=== PATIENT | male | born 1960 | race Caucasian/White ===

== ENCOUNTER 2022-01-21 18:36 | Observation (INO) ==
[2022-01-21] MEDS ORDERED: LORazepam 2 MG/1 ML VIAL IV STA (18:43)
[2022-01-21] MEDS ORDERED: ONDANSETRON INJ 2 MG/ML 2 ML VIAL IV STA (18:43)
[2022-01-21] MEDS ORDERED: SODIUM CHLORIDE 0.9% 1000ML 1,000 ML IV ONE ×2 (18:43→19:48)
--- NOTE | 2022-01-21 18:48 | Emergency Department Note ---
Impression & Plan Syncope and collapse, Elevated d-dimer, Vomiting ED Provider Note Name: BART PRINCE Age: 61 Sex: M Arrives Via: Ambulance Informant: Patient, ED Provider: Lorenzo Fernandez MD Chief Complaint: Passed out Impression: As per impressions above Medical Decision Makin-year-old gentleman arrives for evaluation of syncope followed by severe nausea, diaphoresis and illness. Patient with a history of hypothyroidism, dyslipidemia, hypertension, type 2 diabetes and was started on Ozempic today. At dinner he had a syncopal event and it went to he was severely diaphoretic and agitated. He arrives severely nauseous and diffuse generalized weakness, epigastric abdominal pain and some shortness of breath. By exam he is diaphoretic and quite ill-appearing. EKG initially without any clear evidence of ischemia. He was given Zofran and Ativan and fluids IV with vast improvement in symptoms however did have some hypoxia requiring nasal cannula O2. CT of the head was obtained which is negative for acute findings. Laboratory work-up reveals an elevated D-dimer and given the syncope, mild hypoxia and but it is clear that CT of the chest was necessary but with the abdominal discomfort getting the abdomen was indicated as well. I reviewed his chart and he does not you routinely have acute renal insufficiency as his previous up creatinine was 1.1 as an outpatient a little over a week ago. Thus further fluids given and CT was obtained with IV contrast. Fortunately CT of the chest abdomen/pelvis reveals no acute findings. Repeat EKG continues to show no evidence of ACS and he has had no further chest pain. On repeat evaluations patient is improving significantly. He has no acute neurologic deficits to suspect acute stroke. He is not persistently vertiginous thus I think this is unlikely a posterior process and given his already received dye load for CTs of the chest and pelvis I would prefer to avoid further IV dye especially given his renal insufficiency. Given all these findings clearly will need to come in for further evaluation hospitalist was consulted patient stable at time. Prior Medical Record and Triage/Nursing Notes reviewed by Me Additional history obtained from chart Differentials:Vasovagal event, dehydration, infection, hypoglycemia, electrolyte abnormalities, cardiac sources, intracerebral event, pulmonary embolism, seizure, toxicologic, neurologic, as well as other pathologies. Vital Signs: reviewed and remarkable for no significant abnormalities Interventions: nss bolus, ativan 1mg iv, zofran 4mg iv Labs:Reviewed and remarkable for elevated creatinine, low bicarb Imaging:X ray results are stated below per my interpretation: Chest: 1 view: No infiltrate, no effusion, normal cardiac border. Radiologist interpretation reviewed by me: CT head wo con, ct c/a/p angio no acute findings EKG:Per My Interpretation: Indication Syncope: NSR with 1st AV block 89 bpm, qtc 515. No Ectopy. No Ischemia. No previous for comparison Cardiac/Tele Monitoring: Cardiac Monitoring: An Order was placed for continuous cardiac monitoring. The monitor shows a rate of 80 with a normal sinus rhythm. Consults:Dr Chino oBwles Hospitalist Plan: Disposition:Hospitalization. Condition: Good History of Present Illness:61-year-old male arrives for evaluation of syncope. Patient was eating dinner with his and 2 friends at the [facility]. He became diaphoretic any weakness and then had a syncopal event. His eyes rolled in the back of his head and he laid back against the chair he was sitting in. He did not fall or hit his head. This was followed by a brief episode of shaking. It took him some time to come to and then he vomited multiple times. He notes he feels severely nauseous right now. He denies any current headache but states his entire body feels weak. He denies any focal neurologic deficits or slurred speech. He denies any chest pain or shortness of breath. He notes no abdominal pain. Has had no recent urinary, bowel symptoms, fevers, chills, chest pain, shortness of breath, back pain, leg swelling, calf pain, rashes, ble eding/bruising or other concerning signs or symptoms. He had no falls or trauma or other injuries. EMS notes patient with blood pressure in the 90s and blood sugars in the 120s. Patient states that he is feeling better now that he has vomited several times. Patient does note that he started Ozempic today for his type 2 diabetes. ROS: See above HPI for pertinent positives & negatives. A total of 10 systems reviewed and were otherwise negative. Past Medical History:Hypothyroid, hypertension, type 2 diabetes, SARA, dyslipidemia, GERD Past Surgical History:See Below Family History:See Below Social History:See Below Home Medications:See Below Allergies:statins Vitals:Blood Pressure: 149/80, Pulse 64, RR 17, T 36.5C, O2 96% on RA Physical Exam: GENERAL: Patient is diaphoretic and uncomfortable appearing and in moderate distress. Dry heaving. EYES: No scleral icterus, unremarkable pupils. ENT: Mucous membranes moist, no nasal congestion. NECK: No masses appreciated, nomeningismus, trachea is midline. RESPIRATORY: No dyspnea. Clear to auscultation and equal bilaterally. No wheeze, no rhonchi. CARDIOVASCULAR: Regular rate and rhythm.No murmurs, rubs, gallops appreciated. GASTROINTESTINAL: Abdomen soft, non-tender, no peritonitis.Bowel sounds positive.No masses appreciated. BACK: No midline tenderness, no CVA tenderness EXTREMITIES: Normal motion all extremities, no cyanosis, no edema. NEUROLOGIC: Alert and oriented, no acute motor or sensory deficits, no focal weakness, cranial nerves grossly intact. SKIN: No rash, no jaundice, no diaphoresis. PSYCH: Severely anxious appearing GCS: 15 ED Course: Times/Reassessments: Vastly improved with medications though requiring some nasal cannula O2 which was eventually weaned off without difficulty. Lorenzo Fernandez MD Past Med/Surg History Medical History Anxiety Carpal tunnel syndrome Complex sleep apnea syndrome Dyslipidemia Esophageal reflux Hypertension Hypothyroidism Polymyalgia rheumatica Type 2 diabetes mellitus Surgical History Previous back surgery Family History Other Coronary heart disease Hypertension Lung cancer Social History Smoking Status: Current some day smoker Hx Alcohol Use: Yes Alcohol type: beer, wine and hard liquor Hx Substance Use: No Preferred Language: Mozamb[place] marital status: Current Living Situation: Spouse current occupational status: employed Feels Safe at Home: Yes Assistive Devices: BiPap Allergies Allergies Allergy/AdvReac Type Severity Reaction Status Date / Time Veyeqgz-PVR-IeU Reductase Allergy Verified 01/21/22 22:09 Inhibitor [Zdhdaiz-Qbp-Lsj Reductase Inhibitor] semaglutide [From Ozempic] AdvReac Intermediate arf, loose Verified 01/21/22 22:37 stools Home Meds Home Medications Medication Instructions Recorded Confirmed losartan 100 mg tablet 100 mg PO DAILY tab 02/28/19 01/21/22 omeprazole 20 mg capsule,delayed 20 mg PO DAILY cap 02/28/19 01/21/22 release albuterol sulfate 90 mcg/actuation 2 inh INHALATION Q4H PRN 11/18/20 01/21/22 aerosol inhaler amlodipine 5 mg tablet 5 mg PO QAM 11/18/20 01/21/22 betamethasone, augmented 0.05 % 1 applic TOPICAL BID PRN 11/18/20 01/21/22 topical cream fluticasone furoate 100 1 inh INHALATION DAILY PRN 11/18/20 01/21/22 mcg/actuation blister powder for inhalation (Arnuity Ellipta) levothyroxine 175 mcg tablet 175 mcg PO DAILYBB 11/18/20 01/21/22 celecoxib 200 mg capsule 200 mg PO QAM 01/21/22 01/21/22 cholecalciferol (vitamin D3) 125 125 mcg PO DAILY 01/21/22 01/21/22 mcg (5,000 unit) tablet cyanocobalamin (vitamin B-12) 1,000 mcg PO DAILY 01/21/22 01/21/22 1,000 mcg tablet fluticasone furoate 200 1 inh INHALATION DAILY PRN 01/21/22 01/21/22 mcg-vilanterol 25 mcg/dose inhalation powder (Breo Ellipta) rosuvastatin 20 mg tablet 20 mg PO DAILY 01/21/22 01/21/22 scopolamine base 1 mg over 3 days 1 patch TRANSDERMAL .Q3D PRN 01/21/22 01/21/22 transdermal patch semaglutide (Ozempic) 0.25 mg SUBCUT WK 01/21/22 01/21/22 tamsulosin 0.4 mg capsule 0.4 mg PO QAM 01/21/22 01/21/22 vilazodone 20 mg tablet (Viibryd) 20 mg PO QAM 01/21/22 01/21/22 Results & Data (ED) Vital Signs Vital Signs - 24 hr 01/21/22 18:44 01/21/22 18:45 01/21/22 19:00 Pulse Rate 88 73 Pulse Rate from SpO2 Sensor 89 73 Respiratory Rate 39 H 13 Blood Pressure 117/70 Blood Pressure Mean 85 Pulse Oximetry 98 96 Sepsis New/Unexplained Change in Mental Status Sepsis Action Taken by Nursing 01/21/22 19:13 01/21/22 19:15 01/21/22 19:42 Pulse Rate 79 79 84 Pulse Rate from SpO2 Sensor 80 80 Respiratory Rate 25 H 11 L 11 L Blood Pressure 111/66 121/64 Blood Pressure Mean 81 83 Pulse Oximetry 93 77 L Sepsis New/Unexplained Change in Mental Status Sepsis Action Taken by Nursing 01/21/22 19:45 01/21/22 19:46 01/21/22 19:53 Pulse Rate 90 89 Pulse Rate from SpO2 Sensor 90 89 Respiratory Rate 18 16 Blood Pressure 133/72 118/74 Blood Pressure Mean 92 88 Pulse Oximetry 99 98 Sepsis New/Unexplained Change in Mental Status Yes Sepsis Action Taken by Nursing No Action Required 01/21/22 20:11 01/21/22 20:13 01/21/22 20:15 Pulse Rate 87 89 Pulse Rate from SpO2 Sensor 87 87 89 Respiratory Rate 16 15 Blood Pressure 125/79 120/73 Blood Pressure Mean 94 88 Pulse Oximetry 100 96 94 Sepsis New/Unexplained Change in Mental Status Sepsis Action Taken by Nursing 01/21/22 20:30 01/21/22 20:45 01/21/22 21:00 Pulse Rate 85 Pulse Rate from SpO2 Sensor 85 85 82 Respiratory Rate 18 Blood Pressure 118/70 122/76 126/74 Blood Pressure Mean 86 91 91 Pulse Oximetry 92 89 L 92 Sepsis New/Unexplained Change in Mental Status Sepsis Action Taken by Nursing 01/21/22 21:15 01/21/22 21:30 01/21/22 21:45 Pulse Rate Pulse Rate from SpO2 Sensor 80 88 72 Respiratory Rate Blood Pressure 116/73 140/92 130/76 Blood Pressure Mean 87 108 94 Pulse Oximetry 90 92 93 Sepsis New/Unexplained Change in Mental Status Sepsis Action Taken by Nursing 01/21/22 22:00 01/21/22 22:15 Pulse Rate Pulse Rate from SpO2 Sensor 77 72 Respiratory Rate Blood Pressure 129/84 126/85 Blood Pressure Mean 99 98 Pulse Oximetry 94 92 Sepsis New/Unexplained Change in Mental Status Sepsis Action Taken by Nursing Laboratory Data Result diagrams: 01/21/22 18:55 01/21/22 18:55 Lab Results 01/21/22 01/21/22 01/21/22 Range/Units 18:55 18:55 18:55 WBC 12.12 H (4.8-10.8) K/uL RBC 5.12 (4.7-6.1) M/uL Hgb 15.0 (14.0-18.0) g/dL Hct 43.5 (42-52) % MCV 85.0 (80-100) fL MCH 29.3 (25-34) pg MCHC 34.5 (32-36) g/dL RDW Std Deviation 40.6 (36.4-46.3) fL RDW Coeff of Moises 13.1 (11.5-14.5) % Plt Count 231 (130-400) K/uL MPV 11.2 H (7.4-10.4) fL Immature Gran % (Auto) 0.2 % Neut % (Auto) 60.4 % Lymph % (Auto) 27.0 % Smith % (Auto) 11.9 % Eos % (Auto) 0.5 % Baso % (Auto) 0.0 % Neut # (Auto) 7.32 H (1.4-6.5) K/uL Lymph # (Auto) 3.27 (1.2-3.4) K/uL Smith # (Auto) 1.44 H (0.11-0.59) K/uL Eos # (Auto) 0.06 (0-0.5) K/uL Baso # (Auto) 0.00 (0-0.2) K/uL Immature Gran # (Auto) 0.03 H (0.00-0.02) K/uL D-Dimer 750 H* (0-500) ug/L FEU Sodium 137 (136-145) mmol/L Potassium 3.1 L (3.5-5.1) mmol/L Chloride 102 (98-107) mmol/L Carbon Dioxide 16 L (21-32) mmol/L Anion Gap 19 H (3-11) BUN 35 H (6-23) mg/dl Creatinine 1.76 H (0.6-1.4) mg/dl Est Cr Clr Drug Dosing Not Reportable Est GFR ( Amer) 47.0 ml/min Est GFR (Non-Af Amer) 40.5 ml/min BUN/Creatinine Ratio 19.9 (10-20) Glucose 180 H (70-99(Fasting)) mg/dl Calcium 10.2 H (8.5-10.1) mg/dl Magnesium 2.2 (1.7-2.4) mg/dl Total Bilirubin 1.7 H (0.2-1.0) mg/dl Direct Bilirubin 0.2 (0-0.2) mg/dl AST 28 (13-39) U/L ALT 29 (7-52) U/L Alkaline Phosphatase 62 (34-104) U/L Total Creatine Kinase (30-223) U/L Troponin I High Sens 4.4 (0-20) pg/ml Total Protein 7.3 (6.0-8.3) gm/dl Albumin 4.5 (3.4-5.0) gm/dl Lipase 60 (11-82) U/L Procalcitonin (0-0.5) ng/ml Urine Color Urine Appearance (Clear) Urine pH (4.5-7.5) Ur Specific [place] (1.000-1.030) Urine Protein (Negative) Urine Glucose (UA) (Negative) Urine Ketones (Negative) Urine Blood (Negative) Urine Nitrite (Negative) Urine Bilirubin (Negative) Urine Urobilinogen (Negative) Ur Leukocyte Esterase (Negative) Urine WBC (Auto) (0-5) /hpf Urine RBC (Auto) (0-4) /hpf U Hyaline Cast (Auto) (0-5) /lpf U Epithel Cells (Auto) (0-5) /lpf Urine Bacteria (Auto) (Negative) SARS-CoV-2, RNA, NAAT (NEGATIVE) 01/21/22 01/21/22 01/21/22 Range/Units 18:55 18:55 19:50 WBC (4.8-10.8) K/uL RBC (4.7-6.1) M/uL Hgb (14.0-18.0) g/dL Hct (42-52) % MCV (80-100) fL MCH (25-34) pg MCHC (32-36) g/dL RDW Std Deviation (36.4-46.3) fL RDW Coeff of Moises (11.5-14.5) % Plt Count (130-400) K/uL MPV (7.4-10.4) fL Immature Gran % (Auto) % Neut % (Auto) % Lymph % (Auto) % Smith % (Auto) % Eos % (Auto) % Baso % (Auto) % Neut # (Auto) (1.4-6.5) K/uL Lymph # (Auto) (1.2-3.4) K/uL Smith # (Auto) (0.11-0.59) K/uL Eos # (Auto) (0-0.5) K/uL Baso # (Auto) (0-0.2) K/uL Immature Gran # (Auto) (0.00-0.02) K/uL D-Dimer (0-500) ug/L FEU Sodium (136-145) mmol/L Potassium (3.5-5.1) mmol/L Chloride (98-107) mmol/L Carbon Dioxide (21-32) mmol/L Anion Gap (3-11) BUN (6-23) mg/dl Creatinine (0.6-1.4) mg/dl Est Cr Clr Drug Dosing Est GFR ( Amer) ml/min Est GFR (Non-Af Amer) ml/min BUN/Creatinine Ratio (10-20) Glucose (70-99(Fasting)) mg/dl Calcium (8.5-10.1) mg/dl Magnesium (1.7-2.4) mg/dl Total Bilirubin (0.2-1.0) mg/dl Direct Bilirubin (0-0.2) mg/dl AST (13-39) U/L ALT (7-52) U/L Alkaline Phosphatase (34-104) U/L Total Creatine Kinase 379 H (30-223) U/L Troponin I High Sens (0-20) pg/ml Total Protein (6.0-8.3) gm/dl Albumin (3.4-5.0) gm/dl Lipase (11-82) U/L Procalcitonin < 0.05 (0-0.5) ng/ml Urine Color Urine Appearance (Clear) Urine pH (4.5-7.5) Ur Specific [place] (1.000-1.030) Urine Protein (Negative) Urine Glucose (UA) (Negative) Urine Ketones (Negative) Urine Blood (Negative) Urine Nitrite (Negative) Urine Bilirubin (Negative) Urine Urobilinogen (Negative) Ur Leukocyte Esterase (Negative) Urine WBC (Auto) (0-5) /hpf Urine RBC (Auto) (0-4) /hpf U Hyaline Cast (Auto) (0-5) /lpf U Epithel Cells (Auto) (0-5) /lpf Urine Bacteria (Auto) (Negative) SARS-CoV-2, RNA, NAAT NEGATIVE (NEGATIVE) 01/21/22 Range/Units 20:37 WBC (4.8-10.8) K/uL RBC (4.7-6.1) M/uL Hgb (14.0-18.0) g/dL Hct (42-52) % MCV (80-100) fL MCH (25-34) pg MCHC (32-36) g/dL RDW Std Deviation (36.4-46.3) fL RDW Coeff of Moises (11.5-14.5) % Plt Count (130-400) K/uL MPV (7.4-10.4) fL Immature Gran % (Auto) % Neut % (Auto) % Lymph % (Auto) % Smith % (Auto) % Eos % (Auto) % Baso % (Auto) % Neut # (Auto) (1.4-6.5) K/uL Lymph # (Auto) (1.2-3.4) K/uL Smith # (Auto) (0.11-0.59) K/uL Eos # (Auto) (0-0.5) K/uL Baso # (Auto) (0-0.2) K/uL Immature Gran # (Auto) (0.00-0.02) K/uL D-Dimer (0-500) ug/L FEU Sodium (136-145) mmol/L Potassium (3.5-5.1) mmol/L Chloride (98-107) mmol/L Carbon Dioxide (21-32) mmol/L Anion Gap (3-11) BUN (6-23) mg/dl Creatinine (0.6-1.4) mg/dl Est Cr Clr Drug Dosing Est GFR ( Amer) ml/min Est GFR (Non-Af Amer) ml/min BUN/Creatinine Ratio (10-20) Glucose (70-99(Fasting)) mg/dl Calcium (8.5-10.1) mg/dl Magnesium (1.7-2.4) mg/dl Total Bilirubin (0.2-1.0) mg/dl Direct Bilirubin (0-0.2) mg/dl AST (13-39) U/L ALT (7-52) U/L Alkaline Phosphatase (34-104) U/L Total Creatine Kinase (30-223) U/L Troponin I High Sens (0-20) pg/ml Total Protein (6.0-8.3) gm/dl Albumin (3.4-5.0) gm/dl Lipase (11-82) U/L Procalcitonin (0-0.5) ng/ml Urine Color Dark Yellow Urine Appearance Clear (Clear) Urine pH 5.5 (4.5-7.5) Ur Specific [place] 1.035 H (1.000-1.030) Urine Protein 1+ H (Negative) Urine Glucose (UA) Negative (Negative) Urine Ketones 2+ H (Negative) Urine Blood Negative (Negative) Urine Nitrite Negative (Negative) Urine Bilirubin Negative (Negative) Urine Urobilinogen Negative (Negative) Ur Leukocyte Esterase Negative (Negative) Urine WBC (Auto) 1-5 (0-5) /hpf Urine RBC (Auto) 5-10 H (0-4) /hpf U Hyaline Cast (Auto) 10-30 H (0-5) /lpf U Epithel Cells (Auto) >30 H (0-5) /lpf Urine Bacteria (Auto) Negative (Negative) SARS-CoV-2, RNA, NAAT (NEGATIVE) Administered Medications Lactated Ringer's (Lr) 1,000 mls @ 100 mls/hr IV .Q10H STA Stop: 01/22/22 07:23 Last Admin: 01/21/22 21:43 Dose: 100 mls/hr Documented by: [id number] Insulin Aspart (Insulin Aspart Per Unit) 0 units SC ACHS TOÑO Stop: 02/20/22 23:50 Last Admin: 01/21/22 23:57 Dose: Not Given Documented by: [id number] Discontinued Medications Sodium Chloride (Nss 1000ml) 1,000 mls @ 999 mls/hr IV .Q1H1M ONE Stop: 01/21/22 19:43 Last Infusion: 01/21/22 21:05 Dose: 0 mls/hr Documented by: [id number] Admin: 01/21/22 18:56 Dose: 999 mls/hr Documented by: [id number] Sodium Chloride (Nss 1000ml) 1,000 mls @ 999 mls/hr IV .Q1H1M ONE Stop: 01/21/22 20:48 Last Infusion: 01/21/22 21:05 Dose: 0 mls/hr Documented by: [id number] Admin: 01/21/22 19:57 Dose: 999 mls/hr Documented by: [id number] Levetiracetam 1,000 mg/ Sodium (Chloride) 110 mls @ 440 mls/hr IV NOW STA Stop: 01/21/22 22:40 Last Admin: 01/22/22 00:21 Dose: Not Given Documented by: [id number] Ioversol (Optiray 320 125ml) 120 ml IV ONCE ONE Stop: 01/21/22 20:08 Last Admin: 01/21/22 20:08 Dose: 120 ml Documented by: [id number] Lorazepam (Lorazepam 2 Mg/1 Ml Vial) 1 mg IV NOW STA; Protocol Stop: 01/21/22 18:44 Last Admin: 01/21/22 18:56 Dose: 1 mg Documented by: [id number] Ondansetron HCl (Ondansetron Inj 2 Mg/Ml 2 Ml Vial) 4 mg IV NOW STA Stop: 01/21/22 18:44 Last Admin: 01/21/22 18:56 Dose: 4 mg Documented by: [id number] Potassium Chloride (Potassium Chloride Crtab 20 Meq Tabcr) 40 meq PO NOW STA Stop: 01/21/22 21:16 Last Admin: 01/21/22 21:43 Dose: 40 meq Documented by: [id number] Imaging Data Radiologist's Impression: Head CT 01/21/22 18:43 CT head/brain wo con CLINICAL HISTORY: syncope, vertigo Technique: Contiguous axial CT images of the head were acquired from the base of the skull to the vertex without intravenous contrast administration. Images were viewed in brain, subdural and bone windows. Automated dose lowering techniques and/or adjustment according to patient size were utilized for this exam. Comparison: None available at the time of this dictation. Findings: The ventricles, basal cisterns, and cerebral sulci are normal. There is no acute intracranial hemorrhage or evidence of acute territorial infarction. Neither mass effect, shift of the midline structures, nor abnormal extra-axial fluid collections are shown. Imaged portions of the paranasal sinuses and mastoid air cells are clear. The orbits appear normal. There are no acute fractures of the calvaria or scalp swelling. Impression: No acute intracranial hemorrhage, no evidence of acute territorial infarction or other acute intracranial disease process. ACT 112: Negative or not required by law. Electronically signed by: Deyvi Porras M.D. 01/21/2022 7:43 PM Chest X-Ray 01/21/22 18:44 XR chest 1V portable CLINICAL HISTORY: syncope TECHNIQUE: Single frontal radiograph of the chest was obtained. Comparison: None available at the time of this dictation. FINDINGS: No lines and tubes are seen. The cardiomediastinal silhouette is normal. Lungs are underinflated but clear. No evidence of pleural effusion or pneumothorax. IMPRESSION: No acute chest disease. ACT 112: Negative or not required by law. Electronically signed by: Deyvi Porras M.D. 01/21/2022 7:02 PM Abdomen/Pelvis CTA 01/21/22 19:48 CT angio abdomen pelvis w con CLINICAL HISTORY: diffuse upper abdominal pain s/p syncope, +dimer TECHNIQUE: Multidetector row helical CT of the abdomen and pelvis was performed, following intravenous administration of iodinated contrast. No oral contrast was administered. Automated dose lowering techniques and/or adjustment according to patient size were utilized for this exam. Coronal and sagittal reformations were obtained. MIP and 3D volume rendered reconstructions were obtained. CT DOSE: 1092.53 mGy.cm Comparison: None available at the time of this dictation. FINDINGS: Lower chest: For findings above the diaphragm, please see CT chest performed same day. Liver: A peripherally enhancing 22 mm lesion in segment 7 of the liver (series 5 image 58) is favored to represent a hemangioma given the phase of contrast. Possible hepatic steatosis. Gallbladder and biliary tree: No calcified gallstones. Normal caliber wall. No intra- or extrahepatic biliary ductal dilation. Pancreas: Unremarkable, no focal lesions. Spleen: Unremarkable. Adrenals: Unremarkable. Kidneys and ureters: Unremarkable. Bladder: Unremarkable. Reproductive organs: Unremarkable. Bowel: Unremarkable appearance of the bowel. The appendix is normal. Lymph nodes Retroperitoneal: Unremarkable. Mesenteric: Unremarkable. Pelvic: Unremarkable. Peritoneum: Normal. Abdominal wall: Bilateral fat-containing inguinal hernias are seen. Bones: Degenerative changes in the visualized spine. Sclerotic focus in the L1 vertebral body is favored to represent a bone island. Additional sclerotic foci are noted in the sacrum, right iliac bone, and bilateral femoral heads. CT angiogram: The abdominal aortic contours appear intact without evidence of an eurysmal dilatation and/or dissection. Minimal calcified and noncalcified atherosclerotic disease is seen without evidence of significant stenosis. The origins of the celiac axis, superior mesenteric, inferior mesenteric and bilateral renal arteries are patent. IMPRESSION: 1. No acute abnormalities. The aorta and its branches are patent. 2. Peripherally enhancing 22 mm lesion in segment 7 is favored to represent a hemangioma. If not previously evaluated, CT or MRI liver mass protocol can be performed on a nonemergent basis. ACT 112: Positive. There are findings on this exam that require communication between the performing entity and the patient following Patient Test Result Information Act ([place] Act 112) guidelines. Electronically signed by: Deyvi Porras M.D. 01/21/2022 8:44 PM Chest CTA 01/21/22 19:48 CT angio chest w con CLINICAL HISTORY: syncope, elevated Dimer, known aorta issue . Syncope. Nausea. TECHNIQUE: Multidetector row helical CT of the chest was performed with angiographic protocol. Coronal and sagittal reformations were obtained. Coronal and sagittal MIPS were obtained from the axial data set and were submitted for review. Automated dose lowering techniques and/or adjustment according to patient size were utilized for this exam. Comparison: None available at the time of this dictation. FINDINGS: Lungs and pleura: Atelectasis versus scarring is seen in the dependent portions of the lungs. Heart and pericardium: Heart size is normal. No pericardial effusion. Vessels: No evidence of pulmonary embolism. Mediastinum and margarito: Unremarkable. Chest wall and lower neck: Unremarkable. Abdomen: For findings below the diaphragm, please refer to CT of the abdomen dated the same. Bones: Unremarkable. IMPRESSION: No evidence of pulmonary embolism. Bilateral atelectasis is seen without evidence of consolidation. ACT 112: Negative or not required by law. Electronically signed by: Deyvi Porras M.D. 01/21/2022 8:34 PM Discharge Plan Visit Data Chief Complaint: Syncope ED Provider: Lorenzo Fernandez Discharge Problem: Syncope and collapse, Elevated d-dimer, Vomiting Patient Disposition: Admitted As Inpatient Discharge Instructions Interventions: ED Discharge Assessment Last Done: 01/21/22 23:02 Discharge Problem: Vomiting Qualifiers: Vomiting type: unspecified Nausea presence: with nausea Qualified Code(s): R11.2 - Nausea with vomiting, unspecified
--- NOTE | 2022-01-21 19:03 | XRay Report ---
XR chest 1V portable CLINICAL HISTORY: syncope TECHNIQUE: Single frontal radiograph of the chest was obtained. Comparison: None available at the time of this dictation. FINDINGS: No lines and tubes are seen. The cardiomediastinal silhouette is normal. Lungs are underinflated but clear. No evidence of pleural effusion or pneumothorax. IMPRESSION: No acute chest disease. ACT 112: Negative or not required by law. Electronically signed by: Deyvi Porras M.D. 01/21/2022 7:02 PM
[2022-01-21 19:28] LABS: Eosinophils # (auto) 0.06 K/uL (0-0.5); Eosinophils % (auto) 0.5 %; Hematocrit (blood only) 43.5 % (42-52); Immature Granulocytes # (auto) 0.03 K/uL (0.00-0.02); Immature Granulocytes % (auto) 0.2 %; Lymphocytes # (auto) 3.27 K/uL (1.2-3.4); Mean Corpuscular Hemoglobin 29.3 pg (25-34); Mean Corpuscular Hgb Conc 34.5 g/dL (32-36); Mean Platelet Volume 11.2 fL (7.4-10.4); Monocytes # (auto) 1.44 K/uL (0.11-0.59); Monocytes % (auto) 11.9 %; Neutrophils # (auto) 7.32 K/uL (1.4-6.5); Neutrophils % (auto) 60.4 %; Platelet Count 231 K/uL (130-400); RDW Coefficient of Variation 13.1 % (11.5-14.5); RDW Standard Deviation 40.6 fL (36.4-46.3); Red Blood Count 5.12 M/uL (4.7-6.1); White Blood Count 12.12 K/uL (4.8-10.8)
[2022-01-21 19:34] LABS: Alanine Aminotransferase 29 U/L (7-52); Albumin Level 4.5 gm/dl (3.4-5.0); Alkaline Phosphatase 62 U/L (34-104); Anion Gap 19 (3-11); Aspartate Aminotransferase 28 U/L (13-39); BUN Creatinine Ratio 19.9 (10-20); Bilirubin Direct 0.2 mg/dl (0-0.2); Bilirubin,Total 1.7 mg/dl (0.2-1.0); Blood Urea Nitrogen 35 mg/dl (6-23); Calcium 10.2 mg/dl (8.5-10.1); Carbon Dioxide 16 mmol/L (21-32); Chloride 102 mmol/L (98-107); D Dimer 750 ug/L FEU (0-500); Est GFR (Non-African American) 40.5 ml/min; Glucose 180 mg/dl (70-99(Fasting)); Lipase 60 U/L (11-82); Magnesium 2.2 mg/dl (1.7-2.4); Potassium 3.1 mmol/L (3.5-5.1); Sodium 137 mmol/L (136-145); Total Protein 7.3 gm/dl (6.0-8.3)
[2022-01-21 19:36] LABS: Troponin I High Sensitivity 4.4 pg/ml (0-20)
--- NOTE | 2022-01-21 19:44 | CT Scan Report ---
CT head/brain wo con CLINICAL HISTORY: syncope, vertigo Technique: Contiguous axial CT images of the head were acquired from the base of the skull to the michelle brad without intravenous contrast administration. Images were viewed in brain, subdural and bone [facility]. Automated dose lowering techniques and/or adjustment according to patient size were utilized for this exam. Comparison: None available at the time of this dictation. Findings: The ventricles, basal cisterns, and cerebral sulci are normal. There is no acute intracranial hemorrh age or evidence of acute territorial infarction. Neither mass effect, shift of the midline structures , nor abnormal extra-axial fluid collections are shown. Imaged portions of the paranasal sinuses and mastoid air cells are clear. The orbits appear normal. There are no acute fractures of the calvaria or scalp swelling. Impression: No acute intracranial hemorrhage, no evidence of acute territorial infarction or other acute intracra nial disease process. ACT 112: Negative or not required by law. Electronically signed by: Deyvi Porras M.D. 01/21/2022 7:43 PM
[2022-01-21] MEDS ORDERED: OPTIRAY 320 125ml IV ONE (20:07)
--- NOTE | 2022-01-21 20:36 | CT Scan Report ---
CT angio chest w con CLINICAL HISTORY: syncope, elevated Dimer, known aorta issue . Syncope. Nausea. TECHNIQUE: Multidetector row helical CT of the chest was performed with angiographic protocol. Gonzalez l and sagittal reformations were obtained. Coronal and sagittal MIPS were obtained from the axial tammi a set and were submitted for review. Automated dose lowering techniques and/or adjustment according to patient size were utilized for this exam. Comparison: None available at the time of this dictation. FINDINGS: Lungs and pleura: Atelectasis versus scarring is seen in the dependent portions of the lungs. Heart and pericardium: Heart size is normal. No pericardial effusion. Vessels: No evidence of pulmonary embolism. Mediastinum and margarito: Unremarkable. Chest wall and lower neck: Unremarkable. Abdomen: For findings below the diaphragm, please refer to CT of the abdomen dated the same. Bones: Unremarkable. IMPRESSION: No evidence of pulmonary embolism. Bilateral atelectasis is seen without evidence of consolidation. ACT 112: Negative or not required by law. Electronically signed by: Deyvi Porras M.D. 01/21/2022 8:34 PM
--- NOTE | 2022-01-21 20:46 | CT Scan Report ---
CT angio abdomen pelvis w con CLINICAL HISTORY: diffuse upper abdominal pain s/p syncope, +dimer TECHNIQUE: Multidetector row helical CT of the abdomen and pelvis was performed, following intravenou s administration of iodinated contrast. No oral contrast was administered. Automated dose lowering te chniques and/or adjustment according to patient size were utilized for this exam. Coronal and sagitta l reformations were obtained. MIP and 3D volume rendered reconstructions were obtained. CT DOSE: 1092.53 mGy.cm Comparison: None available at the time of this dictation. FINDINGS: Lower chest: For findings above the diaphragm, please see CT chest performed same day. Liver: A peripherally enhancing 22 mm lesion in segment 7 of the liver (series 5 image 58) is favored to represent a hemangioma given the phase of contrast. Possible hepatic steatosis. Gallbladder and biliary tree: No calcified gallstones. Normal caliber wall. No intra- or extrahepatic biliary ductal dilation. Pancreas: Unremarkable, no focal lesions. Spleen: Unremarkable. Adrenals: Unremarkable. Kidneys and ureters: Unremarkable. Bladder: Unremarkable. Reproductive organs: Unremarkable. Bowel: Unremarkable appearance of the bowel. The appendix is normal. Lymph nodes Retroperitoneal: Unremarkable. Mesenteric: Unremarkable. Pelvic: Unremarkable. Peritoneum: Normal. Abdominal wall: Bilateral fat-containing inguinal hernias are seen. Bones: Degenerative changes in the visualized spine. Sclerotic focus in the L1 vertebral body is favo red to represent a bone island. Additional sclerotic foci are noted in the sacrum, right iliac bone, and bilateral femoral heads. CT angiogram: The abdominal aortic contours appear intact without evidence of aneurysmal dilatation a nd/or dissection. Minimal calcified and noncalcified atherosclerotic disease is seen without evidenc e of significant stenosis. The origins of the celiac axis, superior mesenteric, inferior mesenteric and bilateral renal arteries are patent. IMPRESSION: 1. No acute abnormalities. The aorta and its branches are patent. 2. Peripherally enhancing 22 mm lesion in segment 7 is favored to represent a hemangioma. If not pre viously evaluated, CT or MRI liver mass protocol can be performed on a nonemergent basis. ACT 112: Positive. There are findings on this exam that require communication between the performing entity and the patient following Patient Test Result Information Act ([place] Act 112) guidelines. Electronically signed by: Deyvi Porras M.D. 01/21/2022 8:44 PM
[2022-01-21] MEDS ORDERED: POTASSIUM CHLORIDE CRTAB 20 MEQ TABCR PO STA (21:15)
[2022-01-21 21:23] LABS: Appearance Urine Clear (Clear); Bacteria Urine Automated Negative (Negative); Bilirubin Urine Negative (Negative); Blood Urine Negative (Negative); Color Urine Dark Yellow; Epithelial Cell Urine Auto >30 /lpf (0-5); Glucose Urine UA Negative (Negative); Ketones Urine 2+ (Negative); Leukocyte Esterase Urine Negative (Negative); Nitrite Urine Negative (Negative); Protein Urine 1+ (Negative); Specific Gravity Urine 1.035 (1.000-1.030); Urobilinogen Urine Negative (Negative); pH Urine 5.5 (4.5-7.5)
[2022-01-21] MEDS ORDERED: LACTATED RINGER'S 1,000 ML IV STA (21:24)
[2022-01-21] MEDS ORDERED: levETIRAcetam 1,000 MG in 0.9 % SODIUM CHLORIDE 100 ML IV STA (22:26)
--- NOTE | 2022-01-21 22:38 | History & Physical Report ---
Date of Service January 21, 2022 Assessment & Plan (1) Syncope and collapse: Plan: Possible onset seizures given 's vivid account Possibly precipitated by diarrhea symptoms, ARF following Ozempic Rx Rule out orthostasis hx diastolic dysfunction 60% TTE 2021), patient on the dry side hypertension, stable hyperlipidemia on statin Rx Hypothyroidism, euthyroid as of today's TSH DM2, recent diagnosis hemoglobin A1c of 6.27 December 2021 Hypokalemia secondary to diarrhea SARA on BIPAP occasional cigar use OBS Medical telemetry Seizure precautions, Ativan as needed for active seizures Keppra load dose now EEG, Brain MRI for new onset seizure work-up Neurology consult Re: Possible new onset seizures (Hold off on additional Keppra dose until neurologist input pain as per patient request.) Check orthostatic vitals Monitor creatinine response to IVF Appropriate to hold losartan and NSAIDs until creatinine back to baseline Add Ozempic to patient's ADR list as per patient's request Replace potassium Basal bolus insulin, ISS BG goal 1 10-1 40, carb count coverage DVT prophylaxis. Heparin subcu Full code Patient's requesting updates from providers. Miss Teresa Platt, contact #[phone]. Text document was generated using [employer] voice recognition software. It may contain grammatical or spelling errors. Kindly contact undersigned for clarification of any documentation item in question. History of Present Illness Chief Complaint: Syncope possible seizures as per Primary Care Provider: Peter Rutledge MD History obtained from patient, family, and records. Medical history significant for diastolic dysfunction 60% TTE 2021), hypertension, hyperlipidemia, hypothyroidism, DM2 recent Ozempic Rx, SARA on BIPAP, essential tremor as per records, occasional cigar use. Patient received his first dose of Ozempic for his diabetes few days ago. 1 episode of loose stools today without unusual abdominal discomfort. Exertion at home having to do yard work in preparation for a republican tomorrow. Patient was at a local restaurant with his and some friends when he started not feeling well. Patient felt sweaty followed by syncopal event. As per , patient's eyes rolled back followed by episodic jerking of the right upper extremity as per . Patient woke up shortly somewhat confused as per . Patient worried about seizures with patient's daughter being antiepileptic. No tongue biting/urinary incontinence episodes. Patient admits to achy headache symptoms. No chest pain, no shortness of breath. Patient recalls an episode of syncope in the past attributed to emotional upset related to his father's health. Patient brought to the ER for evaluation. 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 Allergies Allergy/AdvReac Type Severity Reaction Status Date / Time Axbhwgl-NAR-JvD Reductase Allergy Verified 01/21/22 22:09 Inhibitor [Rgsxkby-Cof-Wyv Reductase Inhibitor] semaglutide [From Ozempic] AdvReac Intermediate arf, loose Verified 01/21/22 22:37 stools Home Medications Medication Instructions Recorded Confirmed Type losartan 100 mg tablet 100 mg PO DAILY tab 02/28/19 01/21/22 History omeprazole 20 mg capsule,delayed 20 mg PO DAILY cap 02/28/19 01/21/22 History release albuterol sulfate 90 mcg/actuation 2 inh INHALATION Q4H PRN 11/18/20 01/21/22 History aerosol inhaler amlodipine 5 mg tablet 5 mg PO QAM 11/18/20 01/21/22 History betamethasone, augmented 0.05 % 1 applic TOPICAL BID PRN 11/18/20 01/21/22 History topical cream fluticasone furoate 100 1 inh INHALATION DAILY PRN 11/18/20 01/21/22 History mcg/actuation blister powder for inhalation (Arnuity Ellipta) levothyroxine 175 mcg tablet 175 mcg PO DAILYBB 11/18/20 01/21/22 History celecoxib 200 mg capsule 200 mg PO QAM 01/21/22 01/21/22 History cholecalciferol (vitamin D3) 125 125 mcg PO DAILY 01/21/22 01/21/22 History mcg (5,000 unit) tablet cyanocobalamin (vitamin B-12) 1,000 mcg PO DAILY 01/21/22 01/21/22 History 1,000 mcg tablet fluticasone furoate 200 1 inh INHALATION DAILY PRN 01/21/22 01/21/22 History mcg-vilanterol 25 mcg/dose inhalation powder (Breo Ellipta) rosuvastatin 20 mg tablet 20 mg PO DAILY 01/21/22 01/21/22 History scopolamine base 1 mg over 3 days 1 patch TRANSDERMAL .Q3D PRN 01/21/22 01/21/22 History transdermal patch semaglutide (Ozempic) 0.25 mg SUBCUT WK 01/21/22 01/21/22 History tamsulosin 0.4 mg capsule 0.4 mg PO QAM 01/21/22 01/21/22 History vilazodone 20 mg tablet (Viibryd) 20 mg PO QAM 01/21/22 01/21/22 History Past Med/Surg History Medical History Anxiety Carpal tunnel syndrome Complex sleep apnea syndrome Dyslipidemia Esophageal reflux Hypertension Hypothyroidism Polymyalgia rheumatica Type 2 diabetes mellitus Surgical History Previous back surgery Family History Other Coronary heart disease Hypertension Lung cancer Social History Smoking Status: Current some day smoker Hx Alcohol Use: Yes Alcohol type: beer, wine and hard liquor Hx Substance Use: No Preferred Language: Erit[place] marital status: Current Living Situation: Spouse current occupational status: employed Feels Safe at Home: Yes Assistive Devices: BiPap Review of Systems Review of Systems: As per HPI, all other systems reviewed and negative Physical Exam Physical Exam: GENERAL: Comfortable, slightly anxious, obese, no respiratory distress SKIN: Normal color, warm HEENT: Semmes palpebral conjunctivae, no ptosis, dry buccal mucosa NECK : Supple, short neck, no tenderness CHEST : CTA, no tenderness HEART : RRR, no obvious murmurs ABDOMEN: Some distention, nontender EXTREMITIES : Minimal LE swelling, no LE tenderness, no other conspicuous deformities noted NEUROLOGIC : Coherent, no facial asymmetry, intention hand tremors, no other gross focality Results & Data Results & Data ([facility]) Vital Signs (Past 12 Hours) Vital Signs Pulse Resp BP Pulse Ox 01/21/22 21:00 126/74 92 01/21/22 20:45 122/76 89 L 01/21/22 20:30 85 18 118/70 92 01/21/22 20:15 89 15 120/73 94 01/21/22 20:13 87 16 125/79 96 01/21/22 20:11 100 01/21/22 19:53 89 16 118/74 98 01/21/22 19:45 90 18 133/72 99 01/21/22 19:42 84 11 L 01/21/22 19:15 79 11 L 121/64 77 L 01/21/22 19:13 79 25 H 111/66 93 01/21/22 19:00 73 13 96 01/21/22 18:45 88 39 H 98 01/21/22 18:44 117/70 Laboratory Results Laboratory Results WBC 12.12 K/uL (4.8-10.8) H 01/21/22 18:55 RBC 5.12 M/uL (4.7-6.1) 01/21/22 18:55 Hgb 15.0 g/dL (14.0-18.0) 01/21/22 18:55 Hct 43.5 % (42-52) 01/21/22 18:55 MCV 85.0 fL (80-100) 01/21/22 18:55 MCH 29.3 pg (25-34) 01/21/22 18:55 MCHC 34.5 g/dL (32-36) 01/21/22 18:55 RDW Std Deviation 40.6 fL (36.4-46.3) 01/21/22 18:55 RDW Coeff of Moises 13.1 % (11.5-14.5) 01/21/22 18:55 Plt Count 231 K/uL (130-400) 01/21/22 18:55 MPV 11.2 fL (7.4-10.4) H 01/21/22 18:55 Immature Gran % (Auto) 0.2 % 01/21/22 18:55 Neut % (Auto) 60.4 % 01/21/22 18:55 Lymph % (Auto) 27.0 % 01/21/22 18:55 Davidson % (Auto) 11.9 % 01/21/22 18:55 Eos % (Auto) 0.5 % 01/21/22 18:55 Baso % (Auto) 0.0 % 01/21/22 18:55 Neut # (Auto) 7.32 K/uL (1.4-6.5) H 01/21/22 18:55 Lymph # (Auto) 3.27 K/uL (1.2-3.4) 01/21/22 18:55 Davidson # (Auto) 1.44 K/uL (0.11-0.59) H 01/21/22 18:55 Eos # (Auto) 0.06 K/uL (0-0.5) 01/21/22 18:55 Baso # (Auto) 0.00 K/uL (0-0.2) 01/21/22 18:55 Immature Gran # (Auto) 0.03 K/uL (0.00-0.02) H 01/21/22 18:55 D-Dimer 750 ug/L FEU (0-500) H* 01/21/22 18:55 Sodium 137 mmol/L (136-145) 01/21/22 18:55 Potassium 3.1 mmol/L (3.5-5.1) L 01/21/22 18:55 Chloride 102 mmol/L (98-107) 01/21/22 18:55 Carbon Dioxide 16 mmol/L (21-32) L 01/21/22 18:55 Anion Gap 19 (3-11) H 01/21/22 18:55 BUN 35 mg/dl (6-23) H 01/21/22 18:55 Creatinine 1.76 mg/dl (0.6-1.4) H 01/21/22 18:55 Est Cr Clr Drug Dosing Not Reportable 01/21/22 18:55 Est GFR ( Amer) 47.0 ml/min 01/21/22 18:55 Est GFR (Non-Af Amer) 40.5 ml/min 01/21/22 18:55 BUN/Creatinine Ratio 19.9 (10-20) 01/21/22 18:55 Glucose 180 mg/dl (70-99(Fasting)) H 01/21/22 18:55 Calcium 10.2 mg/dl (8.5-10.1) H 01/21/22 18:55 Magnesium 2.2 mg/dl (1.7-2.4) 01/21/22 18:55 Total Bilirubin 1.7 mg/dl (0.2-1.0) H 01/21/22 18:55 Direct Bilirubin 0.2 mg/dl (0-0.2) 01/21/22 18:55 AST 28 U/L (13-39) 01/21/22 18:55 ALT 29 U/L (7-52) 01/21/22 18:55 Alkaline Phosphatase 62 U/L (34-104) 01/21/22 18:55 Troponin I High Sens 4.4 pg/ml (0-20) 01/21/22 18:55 Total Protein 7.3 gm/dl (6.0-8.3) 01/21/22 18:55 Albumin 4.5 gm/dl (3.4-5.0) 01/21/22 18:55 Lipase 60 U/L (11-82) 01/21/22 18:55 Procalcitonin < 0.05 ng/ml (0-0.5) 01/21/22 18:55 Urine Color Dark Yellow 01/21/22 20:37 Urine Appearance Clear (Clear) 01/21/22 20:37 Urine pH 5.5 (4.5-7.5) 01/21/22 20:37 Ur Specific Shirley 1.035 (1.000-1.030) H 01/21/22 20:37 Urine Protein 1+ (Negative) H 01/21/22 20:37 Urine Glucose (UA) Negative (Negative) 01/21/22 20:37 Urine Ketones 2+ (Negative) H 01/21/22 20:37 Urine Blood Negative (Negative) 01/21/22 20:37 Urine Nitrite Negative (Negative) 01/21/22 20:37 Urine Bilirubin Negative (Negative) 01/21/22 20:37 Urine Urobilinogen Negative (Negative) 01/21/22 20:37 Ur Leukocyte Esterase Negative (Negative) 01/21/22 20:37 Urine WBC (Auto) 1-5 /hpf (0-5) 01/21/22 20:37 Urine RBC (Auto) 5-10 /hpf (0-4) H 01/21/22 20:37 U Hyaline Cast (Auto) 10-30 /lpf (0-5) H 01/21/22 20:37 U Epithel Cells (Auto) >30 /lpf (0-5) H 01/21/22 20:37 Urine Bacteria (Auto) Negative (Negative) 01/21/22 20:37 SARS-CoV-2, RNA, NAAT NEGATIVE (NEGATIVE) 01/21/22 19:[address] 01/21/22 18:43 CT head/brain wo con CLINICAL HISTORY: syncope, vertigo Technique: Contiguous axial CT images of the head were acquired from the base of the skull to the vertex without intravenous contrast administration. Images were viewed in brain, subdural and bone windows. Automated dose lowering techniques and/or adjustment according to patient size were utilized for this exam. Comparison: None available at the time of this dictation. Findings: The ventricles, basal cisterns, and cerebral sulci are normal. There is no acute intracranial hemorrhage or evidence of acute territorial infarction. Neither mass effect, shift of the midline structures, nor abnormal extra-axial fluid collections are shown. Imaged portions of the paranasal sinuses and mastoid air cells are clear. The orbits appear normal. There are no acute fractures of the calvaria or scalp swelling. Impression: No acute intracranial hemorrhage, no evidence of acute territorial infarction or other acute intracranial disease process. ACT 112: Negative or not required by law. Electronically signed by: Deyvi Porras M.D. 01/21/2022 7:43 PM Chest X-Ray 01/21/22 18:44 XR chest 1V portable CLINICAL HISTORY: syncope TECHNIQUE: Single frontal radiograph of the chest was obtained. Comparison: None available at the time of this dictation. FINDINGS: No lines and tubes are seen. The cardiomediastinal silhouette is normal. Lungs are underinflated but clear. No evidence of pleural effusion or pneumothorax. IMPRESSION: No acute chest disease. ACT 112: Negative or not required by law. Electronically signed by: Deyvi Porras M.D. 01/21/2022 7:02 PM Abdomen/Pelvis CTA 01/21/22 19:48 CT angio abdomen pelvis w con CLINICAL HISTORY: diffuse upper abdominal pain s/p syncope, +dimer TECHNIQUE: Multidetector row helical CT of the abdomen and pelvis was performed, following intravenous administration of iodinated contrast. No oral contrast was administered. Automated dose lowering techniques and/or adjustment according to patient size were utilized for this exam. Coronal and sagittal reformations were obtained. MIP and 3D volume rendered reconstructions were obtained. CT DOSE: 1092.53 mGy.cm Comparison: None available at the time of this dictation. FINDINGS: Lower chest: For findings above the diaphragm, please see CT chest performed same day. Liver: A peripherally enhancing 22 mm lesion in segment 7 of the liver (series 5 image 58) is favored to represent a hemangioma given the phase of contrast. Possible hepatic steatosis. Gallbladder and biliary tree: No calcified gallstones. Normal caliber wall. No intra- or extrahepatic biliary ductal dilation. Pancreas: Unremarkable, no focal lesions. Spleen: Unremarkable. Adrenals: Unremarkable. Kidneys and ureters: Unremarkable. Bladder: Unremarkable. Reproductive organs: Unremarkable. Bowel: Unremarkable appearance of the bowel. The appendix is normal. Lymph nodes Retroperitoneal: Unremarkable. Mesenteric: Unremarkable. Pelvic: Unremarkable. Peritoneum: Normal. Abdominal wall: Bilateral fat-containing inguinal hernias are seen. Bones: Degenerative changes in the visualized spine. Sclerotic focus in the L1 vertebral body is favored to represent a bone island. Additional sclerotic foci are noted in the sacrum, right iliac bone, and bilateral femoral heads. CT angiogram: The abdominal aortic contours appear intact without evidence of aneurysmal dilatation and/or dissection. Minimal calcified and noncalcified atherosclerotic disease is seen without evidence of significant stenosis. The origins of the celiac axis, superior mesenteric, inferior mesenteric and bilateral renal arteries are patent. IMPRESSION: 1. No acute abnormalities. The aorta and its branches are patent. 2. Peripherally enhancing 22 mm lesion in segment 7 is favored to represent a hemangioma. If not previously evaluated, CT or MRI liver mass protocol can be performed on a nonemergent basis. ACT 112: Positive. There are findings on this exam that require communication between the performing entity and the patient following Patient Test Result Information Act ([place] Act 112) guidelines. Electronically signed by: Deyvi Porras M.D. 01/21/2022 8:44 PM Chest CTA 01/21/22 19:48 CT angio chest w con CLINICAL HISTORY: syncope, elevated Dimer, known aorta issue . Syncope. Nausea. TECHNIQUE: Multidetector row helical CT of the chest was performed with angiographic protocol. Coronal and sagittal reformations were obtained. Coronal and sagittal MIPS were obtained from the axial data set and were submitted for review. Automated dose lowering techniques and/or adjustment according to patient size were utilized for this exam. Comparison: None available at the time of this dictation. FINDINGS: Lungs and pleura: Atelectasis versus scarring is seen in the dependent portions of the lungs. Heart and pericardium: Heart size is normal. No pericardial effusion. Vessels: No evidence of pulmonary embolism. Mediastinum and margarito: Unremarkable. Chest wall and lower neck: Unremarkable. Abdomen: For findings below the diaphragm, please refer to CT of the abdomen dated the same. Bones: Unremarkable. IMPRESSION: No evidence of pulmonary embolism. Bilateral atelectasis is seen without evidence of consolidation. ACT 112: Negative or not required by law. Electronically signed by: Deyvi Porras M.D. 01/21/2022 8:34 PM Diagnostic Findings EKG as per my interpretation: Rate 90, NSR, normal axis, 1 AVB, T wave abnormalities inferior leads Code Status & VTE Plan VTE Prophylaxis Plan VTE Prophylaxis will be ordered: Yes
[2022-01-21 22:58] LABS: Base Excess VBG 1.5 mEq/L; HCO3 VBG 28 mmol/L; Oxygen Saturation VBG < 60.0 %; PCO2 VBG 49 mmHg (38-50); PO2 VBG 30 mmHg; pH VBG 7.36 (7.36-7.41)
[2022-01-21] MEDS ORDERED: ACETAMINOPHEN 325 MG TAB PO PRN (23:51)
[2022-01-21] MEDS ORDERED: GLUCOSE 10 TABS/TUBE PO PRN (23:51)
[2022-01-21] MEDS ORDERED: DEXTROSE 50% 50 ML SYRINGE IV PRN (23:51)
[2022-01-21] MEDS ORDERED: GLUCOSE 40% GEL 15 GM TUBE PO PRN (23:51)
[2022-01-21] MEDS ORDERED: oxyCODONE HCL IR 5 MG TAB (IMMEDIATE RELEASE) PO PRN (23:51)
[2022-01-21] MEDS ORDERED: CARBOHYDRATES FOR HYPOGLYCEMIA PO PRN (23:51)
[2022-01-21] MEDS ORDERED: LORazepam 1 MG in SYRINGE 0.5 ML IV PRN (23:51)
[2022-01-21] MEDS ORDERED: PROMETHAZINE HCL 12.5 MG in SODIUM CHLORIDE 0.9% 50 ML IV PRN (23:51)
[2022-01-21] MEDS ORDERED: LORazepam 0.5 MG in SYRINGE 0.25 ML IV PRN (23:51)
[2022-01-21] MEDS ORDERED: GLUCAGON FOR INJ 1 MG VIAL SQ PRN (23:51)
[2022-01-21] MEDS: INSULIN ASPART PER UNIT SC SCH (23:57)
[2022-01-22] MEDS ORDERED: LORazepam 2 MG/1 ML VIAL IV PRN (00:08)
[2022-01-22] MEDS: HEPARIN SOD 5,000 UNIT/0.5 ML VIAL SQ SCH ×3 (05:26→20:37)
[2022-01-22] MEDS: LEVOTHYROXINE SODIUM 175 MCG TABLET PO SCH (05:27)
[2022-01-22 06:41] LABS: Eosinophils # (auto) 0.04 K/uL (0-0.5); Eosinophils % (auto) 0.6 %; Hemoglobin 13.5 g/dL (14.0-18.0); Immature Granulocytes # (auto) 0.02 K/uL (0.00-0.02); Immature Granulocytes % (auto) 0.3 %; Lymphocytes # (auto) 1.54 K/uL (1.2-3.4); Lymphocytes % (auto) 21.6 %; Mean Corpuscular Hemoglobin 30.4 pg (25-34); Mean Corpuscular Hgb Conc 34.6 g/dL (32-36); Mean Corpuscular Volume 87.8 fL (80-100); Mean Platelet Volume 11.1 fL (7.4-10.4); Monocytes # (auto) 0.64 K/uL (0.11-0.59); Neutrophils % (auto) 68.5 %; Platelet Count 182 K/uL (130-400); RDW Coefficient of Variation 13.4 % (11.5-14.5); Red Blood Count 4.44 M/uL (4.7-6.1); White Blood Count 7.14 K/uL (4.8-10.8)
[2022-01-22 07:04] LABS: BUN Creatinine Ratio 21.9 (10-20); Calcium 8.9 mg/dl (8.5-10.1); Creatinine Clr Calc Pharmacy 95.5 ml/min; Est GFR (African American) 87.7 ml/min; Est GFR (Non-African American) 75.7 ml/min; Potassium 4.2 mmol/L (3.5-5.1)
[2022-01-22] MEDS: LACTATED RINGER'S 1,000 ML IV SCH ×2 (07:45→18:12)
[2022-01-22] MEDS: INSULIN ASPART PER UNIT SC SCH ×4 (08:42→20:37)
[2022-01-22] MEDS: amLODIPine BESYLATE 5 MG TAB PO SCH (08:44)
[2022-01-22] MEDS: TAMSULOSIN HCL 0.4 MG CAP PO SCH (08:44)
[2022-01-22] MEDS: CYANOCOBALAMIN (B-12) 500 MCG TABLET PO SCH (08:44)
[2022-01-22] MEDS ORDERED: LORazepam 2 MG/1 ML VIAL IV STA (09:56)
[2022-01-22] MEDS ORDERED: LORazepam 1 MG in SYRINGE 0.5 ML IV SCH (10:00)
[2022-01-22] MEDS ORDERED: hydrOXYzine HCl 25 MG TAB PO SCH (10:00)
--- NOTE | 2022-01-22 12:31 | Progress Notes ---
REASON FOR CONSULTATION: Loss of consciousness, possible seizure. HISTORY OF PRESENT ILLNESS: The patient is a 61-year-old right-handed male with a history of hyperte nsion, hyperlipidemia, hypothyroidism, recent diagnosis of diabetes, and obstructive sleep apnea. On this background, the patient received his first dose of Ozempic the day prior to admission. On the day of admission, he had one episode of loose stool without unusual abdominal discomfort. The patien t did yardwork outside for most of the day; however, he had eaten breakfast, lunch, and had a snack i n the afternoon. He has been dieting and has lost 15 pounds, but felt as if his intake was reasonabl e. He also drank fluids. While at home, he felt mildly nonspecifically lightheaded, worse with gloria escoto. He got out of his car at a restaurant, felt similarly lightheaded. When he went into the [facility], he sat down on a chair because he felt he needed to. He felt unwell, indicated feeling like he would lose consciousness, and he slumped backward in his chair with his head back and his eyes rol led. Initially, there was not any seizure activity, but he was pale and very diaphoretic. His then noted he was having random twitching of his shoulders, which lasted about a minute. He did not bite his tongue, did not injure himself, was not incontinent. He came to after about a minute or two , and he felt lightheaded, was only briefly disoriented, meaning did not know what had happened, but became oriented. He was very nauseated, had diffuse generalized weakness, abdominal pain, and some s hortness of breath and was diaphoretic on admission. There was mild hypoxia requiring additional O2. He did not have headache or any neurologic deficits, but was profusely sweating. He laid down on t he floor and felt somewhat improved. He indicates by the time the refined syrup operator arrived that his blood pressu re was normal. He has fainted on 2 occasions, one when he received bad news about his father's health, he fainted an other time briefly when he was drinking alcohol heavily. This was a remote event and no seizure acti vity was noted. He has no history of seizure in youth, significant head injury, stroke. His joni r may have had a few seizures in her teens to early 20s, she may have a primary generalized epilepsy, otherwise there is no family history of seizure. PAST MEDICAL HISTORY: As above, anxiety, reflux, PMR. PAST SURGICAL HISTORY: Back surgery, wrist surgery. FAMILY HISTORY: Diabetes, mild autism, seizures, Parkinson disease, Tourette's, coronary artery dise ase, hypertension, and lung cancer. SOCIAL HISTORY: Occasionally smokes cigars. Occasionally drinks alcohol. Three times a week, drinks some wine. There was no absolute or relative alcohol withdrawal and he is a non profit financial controller. ALLERGIES: STATINS AND NOW LISTED OZEMPIC. HOME MEDICATIONS: Losartan, omeprazole, albuterol, amlodipine, betamethasone, Arnuity Ellipta, levot hyroxine, Celebrex, vitamin D, B12, Breo Ellipta, rosuvastatin, scopolamine, Ozempic, tamsulosin, and . LABORATORY DATA: On admission, his white count was 12. D-dimer was 750. There is a leftward shift . Neutrophils were 7.32. Potassium was 3.1, CO2 of 16, anion gap 19, BUN 35, creatinine 1.76, today 23/1. GFR yesterday 47, today 87. Glucose 180. Njeyx-us-yuuk glucose 125, calcium 10.2, bilirubin 1.7. Total CK on admission 379, today 253. Urinalysis, +1 protein, 2+ ketones, 5-10 red cells, 10- 30 hyaline casts, greater than 30 epithelial cells. IMAGING: CT of the head, noncontrast, which I have reviewed, shows no acute intracranial hemorrhage or acute territorial infarct. Electrocardiogram, sinus rhythm with first-degree AV block, right axis deviation, nonspecific intrave ntricular conduction block, abnormal EKG. PHYSICAL EXAMINATION: VITAL SIGNS: 124/61, 74, 18, 36.6, 95%. GENERAL: The patient is awake and alert. Speech and language are normal. Affect appropriate. NECK: There are no carotid bruits. HEART: No heart murmurs. Heart is regular rate and rhythm. HEENT: Pupils are equal, round, and reactive to light. The optic nerves are unremarkable. Normal f ields, motility, facial sensation, and facial symmetry. NEUROLOGIC: Cranial nerve examination, no tongue lacerations are noted. Motor normal bulk and tone, full strength, no drift. Normal rapid alternating movements. Symmetric reflexes, downgoing toes. Ogdtll-bn-zlln and mnnk-pi-pnep are normal. Sensation is intact to light touch and temperature. Gai t was not tested. IMPRESSION AND PLAN: I am most suspicious that this patient had a syncopal seizure. He likely had h ypotension or bradycardia resulting in decreased perfusion. I think his pallor and diaphoresis argue s and nausea argued for the same. Plan MRI of the brain with and without contrast. The patient repo rts significant claustrophobia. If he cannot have one while in hospital, would recommend that he hav e an MRI of the brain with and without contrast within 1 week. Recommend EEG as well. Recomme nd cardiac monitoring. The loss of consciousness could have been polyfactorial. He had evidence of an acute kidney injury. He may have been mildly dehydrated as well. He was not hypoglycemic. I spo ke to pharmacy and Ozempic is not listed as causing seizure, although it stands to reason that if he was hypoglycemic, he could have had a suture. Fortunately, that was not the case. We will follow ronda levi you. I would not continue anticonvulsant at this time unless we find an abnormality on EEG suggest zelda of seizure. Job ID: [id number]
[2022-01-22] MEDS ORDERED: Nursing to Pharmacy Communication SCH (15:30)
[2022-01-22] MEDS ORDERED: LORazepam 1 MG in SYRINGE 0.5 ML IV PRN (15:31)
[2022-01-22] MEDS ORDERED: hydrOXYzine HCl 25 MG TAB PO PRN (15:32)
--- NOTE | 2022-01-22 15:54 | Hospitalist Progress Note ---
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 Is being managed for the following: #. Syncopal episode, likely multifactorial including dehydration versus va sovagal versus both versus new onset seizure versus others. #. 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 On the day of arrival, patient reported doing yard work in excess than usual since 8 AM to around 3:30 PM and was sweating excessively per patient. On the same evening, patient went to a local restaurant with his and while sitting in the chair, patient started feeling unwell including excessive sweating and clammy and passed out, vomited after regaining consciousness, reports that he was very briefly confused or else was immediately oriented to the surrounding. Reports per his , his eyes were rolled upwards and there was some minor jerking of his bilateral shoulders not upper extremities. No involuntary loss of bowel and bladder. Patient also had an episode of syncope in the past which he attributes to emotional upset related to his father's health. Patient was not hypoglycemic at the field. Ozempic is not listed as causing seizure. Admitting CTA head/CXR: No acute findings. Admitting CTA ABD pelvis: No acute findings. Suggestive of liver hemangioma, nonemergent CT or MRI liver mass protocol suggested. Admitting CT chest: No acute findings. At presentation patient had prerenal EDILMA likely secondary to dehydration/excessive sweating Orthostatic vitals ordered, not taken, will likely not be revealing due to patient receiving IV fluids resuscitation already. Continue telemetry, monitor electrolytes/replete as appropriate, advance diet as tolerated. Await MRI brain with and without contrast. Patient does have anxiety and takes Ativan as needed though rarely at home. Patient will need Ativan prior to MRI. Patient received Keppra loading dose at admission. Neurology evaluated, await EEG and MRI. No seizure medication until EEG. #. Other chronic medical conditions: Diastolic heart failure, HTN, HLD, hypothyroidism, DM2, SARA on CPAP Continue with/resume home meds as and when appropriate. Full code DVT prophylaxis: Heparin Admission and Anticipated Discharge Date Admission Date: January 21, 2022 Subjective Patient seen and examined at bedside for syncopal episode and EDILMA. Patient was lying in bed, on room air, NAD, no new acute events overnight. Patient denies any headache or dizziness or chest pain or palpitation or belly pain or acute changes in his bowel or bladder habits lately. Advance diet as tolerated. Patient reports being anxious for going to MRI, will provide Ativan prior to MRI. Patient reports he does take Ativan as needed though rarely at home for anxiety. Physical Exam Physical Exam: GENERAL: Alert and oriented x3. NAD, on RA. HEENT: No pallor, no icterus. Pupils equal, round and reactive to light. Oral mucosa moist. NECK: No JVD, no neck masses. HEART: S1 and S2 heard. Regular rate and rhythm. No murmur, no gallop. RESPIRATORY SYSTEM: Normal AP diameter. No accessory muscle use. No wheezing, no crackles. ABDOMEN: Soft, bowel sounds present, nontender, no distention. CENTRAL NERVOUS SYSTEM: No facial droop. Speech is clear. Obeys simple commands. Moves extremities. EXTREMITIES: No edema, no erythema seen. Results & Data Results & Data ([facility]) Vital Signs (Past 12 Hours) Vital Signs Temp Pulse Pulse Resp BP Pulse Ox 01/22/22 12:24 36.6 C 63 18 127/68 95 01/22/22 09:00 74 01/22/22 08:17 36.6 C 66 18 124/61 95 01/22/22 03:36 66 19 97
[2022-01-22] MEDS ORDERED: GADOBUTROL 30ML VIAL IV ONE (17:18)
--- NOTE | 2022-01-22 18:04 | Magnetic Resonance Report ---
MRI OF THE BRAIN WITHOUT AND WITH IV CONTRAST SEIZURE PROTOCOL CLINICAL HISTORY: Syncopal episode. Possible seizure. COMPARISON STUDY: Head CT January 21, 2022. TECHNIQUE: Utilizing a 1.5 Vernell magnet and dedicated coil, multiplanar, multiecho imaging of the br ain was performed pre and postcontrast administration. IV administration of 10.5 mL of Gadavist cont rast was uneventful. Thin cut coronal T2 imaging was performed according to seizure protocol. FINDINGS: There are no foci of restricted diffusion to suggest acute infarct. No acute intracranial h emorrhage, midline shift or mass effect is present. There is no intracranial mass or pathologic enhan cement. Ventricular system is unremarkable. Basal cisterns are patent. There are no extra-axial colle ctions. Flow-voids for the major intracranial vessels are present. There are suspected multiple small white matter T2 hyperintense foci which favor mild small vessel disease. No MRI evidence for mesial temporal sclerosis. Prominent perivascular space within the left basal ganglia is noted. Calvarial si gnal is normal. Orbits are unremarkable. Is no mastoid fluid. Minimal ethmoid sinus mucosal thickenin g is present. This study is mildly compromised by motion artifact although is diagnostic IMPRESSION: 1. No acute intracranial findings. 2. No intracranial mass or pathologic enhancement. 3. Several small white matter T2 hyperintense foci which favor mild small vessel disease. ACT 112: Negative or not required by law. Electronically signed by: Main Boyd M.D. 01/22/2022 6:02 PM
[2022-01-23] MEDS: LACTATED RINGER'S 1,000 ML IV SCH (04:09)
[2022-01-23] MEDS: HEPARIN SOD 5,000 UNIT/0.5 ML VIAL SQ SCH (05:23)
[2022-01-23] MEDS: LEVOTHYROXINE SODIUM 175 MCG TABLET PO SCH (05:45)
[2022-01-23 06:05] LABS: Hematocrit (blood only) 40.3 % (42-52); Mean Corpuscular Hemoglobin 28.8 pg (25-34); Mean Corpuscular Hgb Conc 32.3 g/dL (32-36); Mean Corpuscular Volume 89.2 fL (80-100); Mean Platelet Volume 11.3 fL (7.4-10.4); Platelet Count 169 K/uL (130-400); RDW Coefficient of Variation 13.9 % (11.5-14.5); RDW Standard Deviation 45.1 fL (36.4-46.3); Red Blood Count 4.52 M/uL (4.7-6.1); White Blood Count 4.33 K/uL (4.8-10.8)
[2022-01-23 06:19] LABS: BUN Creatinine Ratio 12.9 (10-20); Calcium 9.1 mg/dl (8.5-10.1); Creatinine Clr Calc Pharmacy 99.2 ml/min; Est GFR (Non-African American) 79.3 ml/min; Potassium 4.5 mmol/L (3.5-5.1)
[2022-01-23] MEDS: amLODIPine BESYLATE 5 MG TAB PO SCH (08:15)
[2022-01-23] MEDS: TAMSULOSIN HCL 0.4 MG CAP PO SCH (08:24)
[2022-01-23] MEDS: CYANOCOBALAMIN (B-12) 500 MCG TABLET PO SCH (08:24)
[2022-01-23] MEDS: INSULIN ASPART PER UNIT SC SCH ×2 (08:25→12:03)
[2022-01-23] MEDS ORDERED: ROSUVASTATIN CALCIUM 20 MG TAB PO SCH (09:00)
[2022-01-23] MEDS ORDERED: LOSARTAN POTASSIUM 50 MG TAB PO SCH (09:00)
[2022-01-23] MEDS ORDERED: PANTOprazole 40 MG TAB PO SCH (09:00)
--- NOTE | 2022-01-23 11:42 | Electroencephalogram ---
EEG Procedure Note Date of Service January 23, 2022 Start / End Times Start Time: 10:45 End Time: 11:[address] Lisset Kidd History A 61 year old male with syncopal episode. EEG performed for evaluation of epileptiform activity. Home Medication List Medication Instructions Recorded Confirmed Type losartan 100 mg tablet 100 mg PO DAILY tab 02/28/19 01/21/22 History omeprazole 20 mg capsule,delayed 20 mg PO DAILY cap 02/28/19 01/21/22 History release albuterol sulfate 90 mcg/actuation 2 inh INHALATION Q4H PRN 11/18/20 01/21/22 History aerosol inhaler amlodipine 5 mg tablet 5 mg PO QAM 11/18/20 01/21/22 History betamethasone, augmented 0.05 % 1 applic TOPICAL BID PRN 11/18/20 01/21/22 History topical cream fluticasone furoate 100 1 inh INHALATION DAILY PRN 11/18/20 01/21/22 History mcg/actuation blister powder for inhalation (Arnuity Ellipta) levothyroxine 175 mcg tablet 175 mcg PO DAILYBB 11/18/20 01/21/22 History celecoxib 200 mg capsule 200 mg PO QAM 01/21/22 01/21/22 History cholecalciferol (vitamin D3) 125 125 mcg PO DAILY 01/21/22 01/21/22 History mcg (5,000 unit) tablet cyanocobalamin (vitamin B-12) 1,000 mcg PO DAILY 01/21/22 01/21/22 History 1,000 mcg tablet fluticasone furoate 200 1 inh INHALATION DAILY PRN 01/21/22 01/21/22 History mcg-vilanterol 25 mcg/dose inhalation powder (Breo Ellipta) rosuvastatin 20 mg tablet 20 mg PO DAILY 01/21/22 01/21/22 History scopolamine base 1 mg over 3 days 1 patch TRANSDERMAL .Q3D PRN 01/21/22 01/21/22 History transdermal patch semaglutide (Ozempic) 0.25 mg SUBCUT WK 01/21/22 01/21/22 History tamsulosin 0.4 mg capsule 0.4 mg PO QAM 01/21/22 01/21/22 History vilazodone 20 mg tablet (Viibryd) 20 mg PO QAM 01/21/22 01/21/22 History flash glucose sensor (FreeStyle #1 ea 01/22/22 Rx Maurice 2 Sensor) Inpatient Medication List Amlodipine Besylate (Amlodipine Besylate 5 Mg Tab) 5 mg PO QAM TOÑO Stop: 02/21/22 08:59 Last Admin: 01/23/22 08:15 Dose: 5 mg Documented by: [id number] Admin: 01/22/22 08:44 Dose: 5 mg Documented by: [id number] Cyanocobalamin (Cyanocobalamin (B-12) 500 Mcg Tablet) 1,000 mcg PO DAILY TOÑO Stop: 02/21/22 08:59 Last Admin: 01/23/22 08:24 Dose: 1,000 mcg Documented by: [id number] Admin: 01/22/22 08:44 Dose: 1,000 mcg Documented by: [id number] Heparin Sodium (Porcine) (Heparin Sod 5,000 Unit/0.5 Ml Vial) 5,000 units SQ Q8 TOÑO Stop: 02/21/22 05:59 Last Admin: 01/23/22 05:23 Dose: Not Given Documented by: [id number] Admin: 01/22/22 20:37 Dose: Not Given Documented by: [id number] Admin: 01/22/22 15:29 Dose: Not Given Documented by: [id number] Admin: 01/22/22 05:26 Dose: 5,000 units Documented by: [id number] Insulin Aspart (Insulin Aspart Per Unit) 0 units SC ACHS [facility] Stop: 02/20/22 23:50 Last Admin: 01/23/22 08:25 Dose: Not Given Documented by: [id number] Admin: 01/22/22 20:37 Dose: Not Given Documented by: [id number] Cosigned by: [id number] Admin: 01/22/22 16:45 Dose: Not Given Documented by: [id number] Admin: 01/22/22 12:10 Dose: Not Given Documented by: [id number] Cosigned by: [id number] Admin: 01/22/22 08:42 Dose: Not Given Documented by: [id number] Admin: 01/21/22 23:57 Dose: Not Given Documented by: [id number] Levothyroxine Sodium (Levothyroxine Sodium 175 Mcg Tablet) 175 mcg PO DAILYBB [facility] Stop: 02/21/22 06:29 Last Admin: 01/23/22 05:45 Dose: 175 mcg Documented by: [id number] Admin: 01/22/22 05:27 Dose: 175 mcg Documented by: [id number] Losartan Potassium (Losartan Potassium 50 Mg Tab) 100 mg PO DAILY TOÑO Stop: 02/22/22 08:59 Last Admin: 01/23/22 08:24 Dose: 100 mg Documented by: [id number] Miscellaneous (Viibryd~Order Awaiting Action) 1 ea N/A QS TOÑO Stop: 02/21/22 07:59 Last Admin: 01/23/22 08:29 Dose: Not Given Documented by: [id number] Admin: 01/22/22 20:55 Dose: Not Given Documented by: [id number] Admin: 01/22/22 15:30 Dose: Not Given Documented by: [id number] Admin: 01/22/22 08:44 Dose: Not Given Documented by: [id number] Pantoprazole Sodium (Pantoprazole 40 Mg Tab) 40 mg PO DAILY TOÑO Stop: 02/22/22 08:59 Last Admin: 01/23/22 08:15 Dose: 40 mg Documented by: [id number] Rosuvastatin Calcium (Rosuvastatin Calcium 20 Mg Tab) 20 mg PO DAILY TOÑO Stop: 02/22/22 08:59 Last Admin: 01/23/22 08:24 Dose: 20 mg Documented by: [id number] Tamsulosin HCl (Tamsulosin Hcl 0.4 Mg Cap) 0.4 mg PO QAM TOÑO Stop: 02/21/22 08:59 Last Admin: 01/23/22 08:24 Dose: 0.4 mg Documented by: [id number] Admin: 01/22/22 08:44 Dose: 0.4 mg Documented by: [id number] Discontinued Medications Gadobutrol (Gadobutrol 30ml Vial) 10.5 ml IV ONCE ONE Stop: 01/22/22 17:19 Last Admin: 01/22/22 17:19 Dose: 10.5 ml Documented by: [id number] Hydroxyzine HCl (Hydroxyzine Hcl 25 Mg Tab) 25 mg PO TODAY@1000 TOÑO Stop: 01/22/22 14:00 Last Admin: 01/22/22 16:30 Dose: 25 mg Documented by: [id number] Sodium Chloride (Nss 1000ml) 1,000 mls @ 999 mls/hr IV .Q1H1M ONE Stop: 01/21/22 19:43 Last Infusion: 01/21/22 21:05 Dose: 0 mls/hr Documented by: [id number] Admin: 01/21/22 18:56 Dose: 999 mls/hr Documented by: [id number] Sodium Chloride (Nss 1000ml) 1,000 mls @ 999 mls/hr IV .Q1H1M ONE Stop: 01/21/22 20:48 Last Infusion: 01/21/22 21:05 Dose: 0 mls/hr Documented by: [id number] Admin: 01/21/22 19:57 Dose: 999 mls/hr Documented by: [id number] Lactated Ringer's (Lr) 1,000 mls @ 100 mls/hr IV .Q10H STA Stop: 01/22/22 07:23 Last Infusion: 01/22/22 07:45 Dose: 0 mls/hr Documented by: [id number] Admin: 01/21/22 21:43 Dose: 100 mls/hr Documented by: [id number] Levetiracetam 1,000 mg/ Sodium (Chloride) 110 mls @ 440 mls/hr IV NOW STA Stop: 01/21/22 22:40 Last Admin: 01/22/22 00:21 Dose: Not Given Documented by: [id number] Lactated Ringer's (Lr) 1,000 mls @ 100 mls/hr IV .Q10H TOÑO Stop: 01/23/22 07:59 Last Admin: 01/23/22 04:09 Dose: 100 mls/hr Documented by: [id number] Infusion: 01/23/22 04:09 Dose: 0 mls/hr Documented by: [id number] Admin: 01/22/22 18:12 Dose: 100 mls/hr Documented by: [id number] Infusion: 01/22/22 18:12 Dose: 100 mls/hr Documented by: [id number] Infusion: 01/22/22 17:46 Dose: 100 mls/hr Documented by: [id number] Infusion: 01/22/22 16:57 Dose: 0 mls/hr Documented by: [id number] Admin: 01/22/22 07:45 Dose: 100 mls/hr Documented by: [id number] Lorazepam 1 mg/ Syringe 1 mls @ 2 mls/min IV TODAY@1000 TOÑO Stop: 01/22/22 14:00 Last Admin: 01/22/22 16:56 Dose: Not Given Documented by: [id number] Lorazepam 1 mg/ Syringe 1 mls @ 2 mls/min IV TODAY@1000 PRN PRN Reason: MRI Stop: 01/22/22 23:59 Last Admin: 01/22/22 16:52 Dose: 2 mls/min Documented by: [id number] Ioversol (Optiray 320 125ml) 120 ml IV ONCE ONE Stop: 01/21/22 20:08 Last Admin: 01/21/22 20:08 Dose: 120 ml Documented by: [id number] Lorazepam (Lorazepam 2 Mg/1 Ml Vial) 1 mg IV NOW STA; Protocol Stop: 01/21/22 18:44 Last Admin: 01/21/22 18:56 Dose: 1 mg Documented by: [id number] Ondansetron HCl (Ondansetron Inj 2 Mg/Ml 2 Ml Vial) 4 mg IV NOW STA Stop: 01/21/22 18:44 Last Admin: 01/21/22 18:56 Dose: 4 mg Documented by: [id number] Potassium Chloride (Potassium Chloride Crtab 20 Meq Tabcr) 40 meq PO NOW STA Stop: 01/21/22 21:16 Last Admin: 01/21/22 21:43 Dose: 40 meq Documented by: [id number] Description This is a 21 electrode EEG with a single channel dedicated to limited EKG. The electrodes were placed in accordance with the International 10-20 system. REPORT: At the onset of the EEG, the patient is drowsy.. The background activity consist of 9Hz, persistent, posteriorly dominant, moderate amplitude, symmetric and rhythmic activity that is reactive to eye opening. Anteriorly, it consist of a mixture of low voltage indeterminate activity and 15-25 Hz, persistent, low amplitude, symmetric and rhythmic activity. Stepwise intermittent photic stimulation (1-21 Hz) does not induce any abnormalities. Drowsiness is characterized by low amplitude mixed frequency activity, roving eye movements, and decreased eye blinking and muscle artifact. Interpretation IMPRESSION: This is a normal awake and drowsy routine EEG. There is no evidence of focal slowing or epileptiform activity.
--- NOTE | 2022-01-23 12:52 | Progress Notes ---
DATE OF SERVICE: 01/23/2022 SUBJECTIVE: I am seeing Mr. Platt in followup of a syncopal episode followed by some convulsive activity. He has not had any recurrent events. Echo not yet performed. MRI of the brain, which I r eviewed with and without contrast, shows several small white matter T2 hyperintensities favoring smal l vessel disease. OBJECTIVE: On exam, the patient is awake and alert. Speech and language are normal. Affect appropr iate. 125/72, 76, 18, 36.8, 93. IMPRESSION AND PLAN: Polyfactorial syncope, likely with syncopal seizure. Provided EEG is normal, I would not treat. The patient had an acute kidney injury, likely related to Ozempic. I cannot exclu de a component of dehydration. The patient's symptoms were preceded by a sense of orthostatic lighth eadedness, pallor, severe diaphoresis and nausea, which argue against this being primarily a seizure. Recommend followup echocardiogram, monitoring engineer, consider cardiology consultation as well, cessa tion of Ozempic. The patient can see us in followup. I have no objection to discharge. Job ID: [id number]
--- NOTE | 2022-01-23 13:58 | Discharge Summary ---
Date of Service January 23, 2022 Admission HPI Per Admitting Provider History obtained from patient, family, and records. Medical history significant for diastolic dysfunction 60% TTE 2021), hypertension, hyperlipidemia, hypothyroidism, DM2 recent Ozempic Rx, SARA on BIPAP, essential tremor as per records, occasional cigar use. Patient received his first dose of Ozempic for his diabetes few days ago. 1 episode of loose stools today without unusual abdominal discomfort. Exertion at home having to do yard work in preparation for a republican tomorrow. Patient was at a local restaurant with his and some friends when he started not feeling well. Patient felt sweaty followed by syncopal event. As per , patient's eyes rolled back followed by episodic jerking of the right upper extremity as per . Patient woke up shortly somewhat confused as per . Patient worried about seizures with patient's daughter being antiepileptic. No tongue biting/urinary incontinence episodes. Patient admits to achy headache symptoms. No chest pain, no shortness of breath. Patient recalls an episode of syncope in the past attributed to emotional upset related to his father's health. Patient brought to the ER for evaluation. Medical History as above Surgical History : Back surgery, wrist surgery Family History : DM, autism, seizure disorder, Parkinson's disease, Tourette's Personal/Social history : Occasional cigar use, occasional Et[employer] intake, financial reporting manager Admission Exam Per Admitting Provider GENERAL: Comfortable, slightly anxious, obese, no respiratory distress SKIN: Normal color, warm HEENT: [place] palpebral conjunctivae, no ptosis, dry buccal mucosa NECK : Supple, short neck, no tenderness CHEST : CTA, no tenderness HEART : RRR, no obvious murmurs ABDOMEN: Some distention, nontender EXTREMITIES : Minimal LE swelling, no LE tenderness, no other conspicuous deformities noted NEUROLOGIC : Coherent, no facial asymmetry, intention hand tremors, no other gross focality Principal Diagnosis Syncope Discharge Exam General: Lying comfortably in bed, not in distress, on room air HEENT: EOMI, JENNIFER, MMM Chest: Clear breath sounds bilaterally, no wheezes or crackles CVS: Regular rate and rhythm, normal heart sounds, no murmur Abdomen: Soft, non tender, not distended, normal bowel sounds Neuro: Awake, alert, oriented, conversing well, non focal Extremities: No cyanosis, clubbing or edema Discharge Data Allergies Allergy/AdvReac Type Severity Reaction Status Date / Time Gkoyfgt-WLQ-[id number] Reductase Allergy Verified 01/21/22 22:09 Inhibitor [Deioikg-Cqo-Teb Reductase Inhibitor] semaglutide [From Ozempic] AdvReac Intermediate arf, loose Verified 01/21/22 22:37 stools Consultations 01/21/22 21:04 ED Decision to Admit Stat 01/21/22 23:51 Consult Neurology Routine Ordered Studies 01/21/22 18:43 CT head/brain wo con Stat 01/21/22 19:48 CT angio abdomen pelvis w con Stat CT angio chest w con Stat 01/22/22 12:00 MR brain seizure wo/w con Routine Laboratory Results WBC 4.33 K/uL (4.8-10.8) L 01/23/22 05:18 RBC 4.52 M/uL (4.7-6.1) L 01/23/22 05:18 Hgb 13.0 g/dL (14.0-18.0) L 01/23/22 05:18 Hct 40.3 % (42-52) L 01/23/22 05:18 MCV 89.2 fL (80-100) 01/23/22 05:18 MCH 28.8 pg (25-34) 01/23/22 05:18 MCHC 32.3 g/dL (32-36) 01/23/22 05:18 RDW Std Deviation 45.1 fL (36.4-46.3) 01/23/22 05:18 RDW Coeff of Moises 13.9 % (11.5-14.5) 01/23/22 05:18 Plt Count 169 K/uL (130-400) 01/23/22 05:18 MPV 11.3 fL (7.4-10.4) H 01/23/22 05:18 Immature Gran % (Auto) 0.3 % 01/22/22 05:24 Neut % (Auto) 68.5 % 01/22/22 05:24 Lymph % (Auto) 21.6 % 01/22/22 05:24 Carlton % (Auto) 9.0 % 01/22/22 05:24 Eos % (Auto) 0.6 % 01/22/22 05:24 Baso % (Auto) 0.0 % 07/03/22 05:24 Neut # (Auto) 4.90 K/uL (1.4-6.5) 01/22/22 05:24 Lymph # (Auto) 1.54 K/uL (1.2-3.4) 01/22/22 05:24 Carlton # (Auto) 0.64 K/uL (0.11-0.59) H 01/22/22 05:24 Eos # (Auto) 0.04 K/uL (0-0.5) 01/22/22 05:24 Baso # (Auto) 0.00 K/uL (0-0.2) 01/22/22 05:24 Immature Gran # (Auto) 0.02 K/uL (0.00-0.02) 01/22/22 05:24 D-Dimer 750 ug/L FEU (0-500) H* 01/21/22 18:55 VBG pH 7.36 (7.36-7.41) 01/21/22 22:50 VBG pCO2 49 mmHg (38-50) 01/21/22 22:50 VBG pO2 30 mmHg 01/21/22 22:50 VBG HCO3 28 mmol/L 01/21/22 22:50 VBG O2 Saturation < 60.0 % 01/21/22 22:50 VBG Base Excess 1.5 mEq/L 01/21/22 22:50 Sodium 141 mmol/L (136-145) 01/23/22 05:18 Potassium 4.5 mmol/L (3.5-5.1) 01/23/22 05:18 Chloride 108 mmol/L (98-107) H 01/23/22 05:18 Carbon Dioxide 30 mmol/L (21-32) 01/23/22 05:18 Anion Gap 3 (3-11) 01/23/22 05:18 BUN 13 mg/dl (6-23) 01/23/22 05:18 Creatinine 1.01 mg/dl (0.6-1.4) 01/23/22 05:18 Est Cr Clr Drug Dosing 99.2 ml/min 01/23/22 05:18 Est GFR ( Amer) 92.0 ml/min 01/23/22 05:18 Est GFR (Non-Af Amer) 79.3 ml/min 01/23/22 05:18 BUN/Creatinine Ratio 12.9 (10-20) 01/23/22 05:18 Glucose 92 mg/dl (70-99(Fasting)) 01/23/22 05:18 POC Glucose 99 mg/dl (70-99) 01/23/22 11:33 Calcium 9.1 mg/dl (8.5-10.1) 01/23/22 05:18 Magnesium 2.0 mg/dl (1.7-2.4) 01/23/22 05:18 Total Bilirubin 1.7 mg/dl (0.2-1.0) H 01/21/22 18:55 Direct Bilirubin 0.2 mg/dl (0-0.2) 01/21/22 18:55 AST 28 U/L (13-39) 01/21/22 18:55 ALT 29 U/L (7-52) 01/21/22 18:55 Alkaline Phosphatase 62 U/L (34-104) 01/21/22 18:55 Total Creatine Kinase 253 U/L (30-223) H 01/22/22 05:24 Troponin I High Sens 4.4 pg/ml (0-20) 01/21/22 18:55 Total Protein 7.3 gm/dl (6.0-8.3) 01/21/22 18:55 Albumin 4.5 gm/dl (3.4-5.0) 01/21/22 18:55 Lipase 60 U/L (11-82) 01/21/22 18:55 Procalcitonin < 0.05 ng/ml (0-0.5) 01/21/22 18:55 Urine Color Dark Yellow 01/21/22 20:37 Urine Appearance Clear (Clear) 01/21/22 20:37 Urine pH 5.5 (4.5-7.5) 01/21/22 20:37 Ur Specific [place] 1.035 (1.000-1.030) H 01/21/22 20:37 Urine Protein 1+ (Negative) H 01/21/22 20:37 Urine Glucose (UA) Negative (Negative) 01/21/22 20:37 Urine Ketones 2+ (Negative) H 01/21/22 20:37 Urine Blood Negative (Negative) 01/21/22 20:37 Urine Nitrite Negative (Negative) 01/21/22 20:37 Urine Bilirubin Negative (Negative) 01/21/22 20:37 Urine Urobilinogen Negative (Negative) 01/21/22 20:37 Ur Leukocyte Esterase Negative (Negative) 01/21/22 20:37 Urine WBC (Auto) 1-5 /hpf (0-5) 01/21/22 20:37 Urine RBC (Auto) 5-10 /hpf (0-4) H 01/21/22 20:37 U Hyaline Cast (Auto) 10-30 /lpf (0-5) H 01/21/22 20:37 U Epithel Cells (Auto) >30 /lpf (0-5) H 01/21/22 20:37 Urine Bacteria (Auto) Negative (Negative) 01/21/22 20:37 SARS-CoV-2, RNA, NAAT NEGATIVE (NEGATIVE) 01/21/22 19:[address] 01/21/22 18:43 CT head/brain wo con CLINICAL HISTORY: syncope, vertigo Technique: Contiguous axial CT images of the head were acquired from the base of the skull to the vertex without intravenous contrast administration. Images were viewed in brain, subdural and bone windows. Automated dose lowering techniques and/or adjustment according to patient size were utilized for this exam. Comparison: None available at the time of this dictation. Findings: The ventricles, basal cisterns, and cerebral sulci are normal. There is no acute intracranial hemorrhage or evidence of acute territorial infarction. Neither mass effect, shift of the midline structures, nor abnormal extra-axial fluid collections are shown. Imaged portions of the paranasal sinuses and mastoid air cells are clear. The orbits appear normal. There are no acute fractures of the calvaria or scalp swelling. Impression: No acute intracranial hemorrhage, no evidence of acute territorial infarction or other acute intracranial disease process. ACT 112: Negative or not required by law. Electronically signed by: Deyvi Porras M.D. 01/21/2022 7:43 PM Chest X-Ray 01/21/22 18:44 XR chest 1V portable CLINICAL HISTORY: syncope TECHNIQUE: Single frontal radiograph of the chest was obtained. Comparison: None available at the time of this dictation. FINDINGS: No lines and tubes are seen. The cardiomediastinal silhouette is normal. Lungs are underinflated but clear. No evidence of pleural effusion or pneumothorax. IMPRESSION: No acute chest disease. ACT 112: Negative or not required by law. Electronically signed by: Deyvi Porras M.D. 01/21/2022 7:02 PM Abdomen/Pelvis CTA 01/21/22 19:48 CT angio abdomen pelvis w con CLINICAL HISTORY: diffuse upper abdominal pain s/p syncope, +dimer TECHNIQUE: Multidetector row helical CT of the abdomen and pelvis was performed, following intravenous administration of iodinated contrast. No oral contrast was administered. Automated dose lowering techniques and/or adjustment according to patient size were utilized for this exam. Coronal and sagittal reformations were obtained. MIP and 3D volume rendered reconstructions were obtained. CT DOSE: 1092.53 mGy.cm Comparison: None available at the time of this dictation. FINDINGS: Lower chest: For findings above the diaphragm, please see CT chest performed same day. Liver: A peripherally enhancing 22 mm lesion in segment 7 of the liver (series 5 image 58) is favored to represent a hemangioma given the phase of contrast. Possible hepatic steatosis. Gallbladder and biliary tree: No calcified gallstones. Normal caliber wall. No intra- or extrahepatic biliary ductal dilation. Pancreas: Unremarkable, no focal lesions. Spleen: Unremarkable. Adrenals: Unremarkable. Kidneys and ureters: Unremarkable. Bladder: Unremarkable. Reproductive organs: Unremarkable. Bowel: Unremarkable appearance of the bowel. The appendix is normal. Lymph nodes Retroperitoneal: Unremarkable. Mesenteric: Unremarkable. Pelvic: Unremarkable. Peritoneum: Normal. Abdominal wall: Bilateral fat-containing inguinal hernias are seen. Bones: Degenerative changes in the visualized spine. Sclerotic focus in the L1 vertebral body is favored to represent a bone island. Additional sclerotic foci are noted in the sacrum, right iliac bone, and bilateral femoral heads. CT angiogram: The abdominal aortic contours appear intact without evidence of aneurysmal dilatation and/or dissection. Minimal calcified and noncalcified atherosclerotic disease is seen without evidence of significant stenosis. The origins of the celiac axis, superior mesenteric, inferior mesenteric and bilateral renal arteries are patent. IMPRESSION: 1. No acute abnormalities. The aorta and its branches are patent. 2. Peripherally enhancing 22 mm lesion in segment 7 is favored to represent a hemangioma. If not previously evaluated, CT or MRI liver mass protocol can be performed on a nonemergent basis. ACT 112: Positive. There are findings on this exam that require communication between the performing entity and the patient following Patient Test Result Information Act ([place] Act 112) guidelines. Electronically signed by: Deyvi Porras M.D. 01/21/2022 8:44 PM Chest CTA 01/21/22 19:48 CT angio chest w con CLINICAL HISTORY: syncope, elevated Dimer, known aorta issue . Syncope. Nausea. TECHNIQUE: Multidetector row helical CT of the chest was performed with angiographic protocol. Coronal and sagittal reformations were obtained. Coronal and sagittal MIPS were obtained from the axial data set and were submitted for review. Automated dose lowering techniques and/or adjustment according to patient size were utilized for this exam. Comparison: None available at the time of this dictation. FINDINGS: Lungs and pleura: Atelectasis versus scarring is seen in the dependent portions of the lungs. Heart and pericardium: Heart size is normal. No pericardial effusion. Vessels: No evidence of pulmonary embolism. Mediastinum and margartio: Unremarkable. Chest wall and lower neck: Unremarkable. Abdomen: For findings below the diaphragm, please refer to CT of the abdomen dated the same. Bones: Unremarkable. IMPRESSION: No evidence of pulmonary embolism. Bilateral atelectasis is seen without evidence of consolidation. ACT 112: Negative or not required by law. Electronically signed by: Deyvi Porras M.D. 01/21/2022 8:34 PM Brain MRI 01/22/22 12:00 MRI OF THE BRAIN WITHOUT AND WITH IV CONTRAST SEIZURE PROTOCOL CLINICAL HISTORY: Syncopal episode. Possible seizure. COMPARISON STUDY: Head CT January 21, 2022. TECHNIQUE: Utilizing a 1.5 Vernell magnet and dedicated coil, multiplanar, multiecho imaging of the brain was performed pre and postcontrast administration. IV administration of 10.5 mL of Gadavist contrast was uneventful. Thin cut coronal T2 imaging was performed according to seizure protocol. FINDINGS: There are no foci of restricted diffusion to suggest acute infarct. No acute intracranial hemorrhage, midline shift or mass effect is present. There is no intracranial mass or pathologic enhancement. Ventricular system is unremarkable. Basal cisterns are patent. There are no extra-axial collections. Flow-voids for the major intracranial vessels are present. There are suspected multiple small white matter T2 hyperintense foci which favor mild small vessel disease. No MRI evidence for mesial temporal sclerosis. Prominent perivascular space within the left basal ganglia is noted. Calvarial signal is normal. Orbits are unremarkable. Is no mastoid fluid. Minimal ethmoid sinus mucosal thickening is present. This study is mildly compromised by motion artifact although is diagnostic IMPRESSION: 1. No acute intracranial findings. 2. No intracranial mass or pathologic enhancement. 3. Several small white matter T2 hyperintense foci which favor mild small vessel disease. ACT 112: Negative or not required by law. Electronically signed by: Main Boyd M.D. 01/22/2022 6:02 PM Hospital Course (1) Syncope and collapse: 61-year-old gentleman with PMH of diastolic HF [EF 60% 2021 TTE], HTN, HLD, hypothyroidism, DM2 [first Ozempic treatment 1 day ago [employer]], SARA on BiPAP, essential tremor, occasional cigar use presented to our ED 01/21 with complaint of syncopal episode followed by brief seizure like activity. Per prior hospitalist- "patient started on Ozempic 1 day ago [employer]. On the day of arrival, patient reported doing yard work in excess than usual since 8 AM to around 3:30 PM and was sweating excessively per patient. On the same evening, patient went to a local restaurant with his and while sitting in the chair, patient started feeling unwell including excessive sweating and clammy and passed out, vomited after regaining consciousness, reports that he was very briefly confused or else was immediately oriented to the surrounding. Reports per his , his eyes were rolled upwards and there was some minor jerking of his bilateral shoulders not upper extremities. No involuntary loss of bowel and bladder. Patient also had an episode of syncope in the past which he attributes to emotional upset related to his father's health. Patient was not hypoglycemic at the field. Ozempic is not listed as causing seizure". Patient had extensive work up including CT head, MRI brain, EEG which was unremarkable. CTA chest (no PE) and abdomen pelvis with no acute finding except for liver hemangioma which patient is already aware of and states he had MRI before for evaluation. Orthostatics negative. Telemetry unremarkable. Had EDILMA on admission likely prerenal due to dehydration which is resolved. Electrolytes normal. He feels good and wants to be discharged. Patient likely had a vasovagal syncope alomng with excess dehydra tion for excess outside activities, and likely had a syncopal seizure. Discussed with neuro and cleared for discharge- no indication for antiepileptics and no need to be reported to DMV currently. Neuro note reviewed. Patient gets annual echo by his PCP- last was in 06/2021 which had normal EF, grade 1 diastolic dysfunction, no aortic stenosis, no significant valvular regurgitation. Recommended OP cardio follow up with echo, zio monitor per neuro recommendation- will ask our nurse coordinator to get him scheduled as soon as possible. Patient had concern whether ozempic might be related to his EDILMA and whether he can continue ozempic or not. Reviewed uptodate and discussued with the patient. His EDILMA is most likely explained by his dehydration, rather than ozempic. Hence, I believe he can continue trial of ozempic while monitoring his renal function to ensure cause effect relationship. If this happens again, this should be discontinued. Explained this in detail to the patient over the phone who verbalized the understanding. He will follow up with his PCP and get repeat BMP couple days after ozempic. Other medical conditions stable and no medications were changed at discharge. Continue with/resume home meds as and when appropriate. Total Time Total Time Spent Total Time Spent (In Minutes): 50 Discharge Plan Discharge Items Patient Disposition: Home - Self-Care Reason For Visit: SYNCOPE,POSSIBLE SZ Discharge Diagnosis: Syncope Activity: Resume your previous activity Non-emergency contact: Primary Care Provider Call non-emergency contact if: you have any medication questions and your symptoms worsen Follow-up/Referrals: Peter Rutledge MD [Primary Care Provider] - Diet: Regular Addtl Attending Provider Instructions: You likely passed out because of vasovagal syncope and dehydration. Your seizure was likely from the syncope itself. Your kidney numbers were elevated likely from the dehydration but it has now resolved. Recommend adequate hydration. Recommend repeat blood work (BMP) couple days after next dose of ozempic to ensure the kidney numbers are fine. Recommend follow up with cardio for echo and zio monitor to complete work up of your syncope as per neurology recommendation. Pending Studies at Discharge: No Stand-Alone Forms: My i[employer], Smoking Cessation Medications and DC Order Prescriptions: New (DME) FreeStyle Maurice 2 Sensor Kit See Rx Instructions .Route Qty: 1 RF: 0 Continued losartan 100 mg tablet 100 mg PO DAILY RF: 0 omeprazole 20 mg capsule,delayed release(DR/EC) 20 mg PO DAILY RF: 0 celecoxib 200 mg capsule 200 mg PO QAM RF: 0 Ozempic 0.25 mg or 0.5 mg(2 mg/1.5 mL) pen injector 0.25 mg SUBCUT WK RF: 0 tamsulosin 0.4 mg capsule 0.4 mg PO QAM RF: 0 fluticasone furoate-vilanterol [Breo Ellipta] 200-25 mcg/dose blister with device 1 inh INHALATION DAILY PRN (Reason: Shortness Of Breath Or Wheezing) RF: 0 Viibryd 20 mg tablet 20 mg PO QAM RF: 0 cholecalciferol (vitamin D3) 125 mcg (5,000 unit) Tablet 125 mcg PO DAILY RF: 0 cyanocobalamin (vitamin B-12) 1,000 mcg Tablet 1,000 mcg PO DAILY RF: 0 rosuvastatin 20 mg Tablet 20 mg PO DAILY RF: 0 scopolamine base 1 mg over 3 days patch 3 day 1 patch transdermal .Q3D PRN (Reason: Motion Sickness) RF: 0 levothyroxine 175 mcg tablet 175 mcg PO DAILYBB RF: 0 betamethasone, augmented 0.05 % cream 1 applic TOPICAL BID PRN (Reason: Skin Irritation) RF: 0 amlodipine 5 mg tablet 5 mg PO QAM RF: 0 albuterol sulfate 90 mcg/actuation HFA aerosol inhaler 2 inh INHALATION Q4H PRN (Reason: Shortness Of Breath) RF: 0 Arnuity Ellipta 100 mcg/actuation blister with device 1 inh INHALATION DAILY PRN (Reason: Shortness Of Breath Or Wheezing) RF: 0 Discharge Orders: Discharge Order (Routine); Ordered 01/23/22 Ordered By: Gaurang Pastrana Admission Data Admit Date/Time: 01/21/22 22:30 Attending Provider: Gaurang Pastrana Admit Provider: Arun Magana Primary Care Provider: Peter Rutledge Other Providers: Arun Magana ; Lisset Christianson ; Jah Salinas Kathleen ; Deandre Vergara ; Marjorie Disla Other Interventions: Discharge Summary Assessment (RN) Last Done: 01/23/22 12:28
--- NOTE | 2022-01-23 22:49 | Electrocardiogram Report ---
Test Reason : Blood Pressure : / mmHG Vent. Rate : 092 BPM Atrial Rate : 092 BPM P-R Int : 218 ms QRS Dur : 126 ms QT Int : 402 ms P-R-T Axes : 060 091 022 degrees QTc Int : 497 ms Sinus rhythm with 1st degree A-V block Rightward axis Non-specific intra-ventricular conduction block Abnormal ECG No previous ECGs available Confirmed by Oliver Ansari ([id number]) on 01/23/2022 10:48:50 PM Referred By: REFERRED SELF Confirmed By:Oliver Ansari
--- NOTE | 2022-01-23 22:51 | Electrocardiogram Report ---
Test Reason : Blood Pressure : / mmHG Vent. Rate : 089 BPM Atrial Rate : 089 BPM P-R Int : 222 ms QRS Dur : 138 ms QT Int : 424 ms P-R-T Axes : 046 073 -02 degrees QTc Int : 515 ms Sinus rhythm with 1st degree A-V block with Premature atrial complexes Non-specific intra-ventricular conduction block T wave abnormality, consider inferior ischemia Abnormal ECG When compared with ECG of 21-JAN-2022 18:43, Premature atrial complexes are now Present Confirmed by Oliver Ansari ([id number]) on 01/23/2022 10:51:41 PM Referred By: REFERRED SELF Confirmed By:Oliver Ansari
== END 2022-01-23 12:55 | disposition home or self-care (01) ==
LOC: 2N 18:36 → ED 18:36 → SUATTDRO 22:30 → 2N 23:02